=== PATIENT | male | born 1945 | race Hispanic/Latino ===

== ENCOUNTER 2017-07-31 20:07 | Inpatient (IN) | payer MEDICARE ==
[~2017-07-31] VITALS: Ht 162.6 cm; Wt 71.4 kg
[~2017-07-31 20:07] MED LIST: ASPI-1181 PO; IPRA21SP IH; IPRA4AER IH; LISI-617 PO; METO25TA6 PO; SIMV40TA59 PO; TAMS-1 PO; UMECLIDINIUM IH
[2017-07-31 20:39] LABS: BASOPHILS % (AUTO) 0.1 % (0.0-5.0); HEMATOCRIT 43.3 % (42-54); LYMPHOCYTES % (AUTO) 6.2 % (21.0-51.0); MEAN CORPUSCULAR HEMOGLOBIN 28.7 pg (27.0-33.0); MEAN CORPUSCULAR HGB CONC 33.3 g/dL (32.0-36.0); MEAN CORPUSCULAR VOLUME 86.2 fL (79-99); MONOCYTES % (AUTO) 10.4 % (3.0-13.0); NEUTROPHILS % (AUTO) 83.3 % (40.0-77.0); PLATELET COUNT (AUTO) 234 K/uL (130-400); RED BLOOD CELL COUNT(AUTO) 5.02 MIL/uL (4.50-6.20); RED CELL DISTRIBUTION WIDTH 15.1 % (11.0-15.5); WHITE BLOOD COUNT (AUTO) 8.8 K/uL (4.8-10.8)
[2017-07-31 20:48] LABS: CREATININE 1.1 mg/dL (0.5-1.5); POTASSIUM 4.5 mmol/L (3.5-5.1)
[2017-07-31 20:53] LABS: ALBUMIN 3.2 g/dL (3.5-5.0); BILIRUBIN,TOTAL 0.3 mg/dL (0.2-1.0); TOTAL PROTEIN, SERUM 7.5 g/dL (6.0-8.3)
[2017-07-31 22:12] LABS: CREATINE KINASE MB 1.6 ng/mL (0.5-3.6)
[2017-07-31] MEDS ORDERED: BENZONATATE 100 MG CAPSULE PO ONE (23:56)
[2017-07-31] MEDS ORDERED: METHYLPREDNISOLONE SOD SUCC 125MG/2ML VIAL ONE (23:57)
[2017-07-31] MEDS ORDERED: LEVOFLOXACIN 500 MG/D5W 100 ML 100 ML ONE (23:57)
[2017-08-01] MEDS ORDERED: IPRATROPIUM/ALBUTEROL SULFATE 3 ML SOLUTION IH ONE (00:17)
[2017-08-01] MEDS ORDERED: ONDANSETRON HCL 4 MG/2 ML VIAL IV PRN (01:45)
[2017-08-01] MEDS ORDERED: HYDRALAZINE HCL 20 MG/ML VIAL IV PRN (01:45)
[2017-08-01] MEDS ORDERED: GUAIFENESIN-DM 200/20 MG 10 ML PO PRN (01:45)
[2017-08-01] MEDS ORDERED: LIDOCAINE HCL-MPF 1% 2ML VIAL IVP PRN (01:45)
[2017-08-01] MEDS ORDERED: POTASSIUM CHLORIDE 20 MEQ ERTAB PO PRN (01:45)
[2017-08-01] MEDS ORDERED: POTASSIUM CHLORIDE 20MEQ/100ML 100 ML IV PRN (01:45)
[2017-08-01] MEDS: LEVOFLOXACIN 500 MG/D5W 100 ML 100 ML IV SCH ×2 (01:45→23:46)
[2017-08-01] MEDS: METHYLPREDNISOLONE SOD SUCC 125MG/2ML VIAL IV SCH ×2 (01:45→19:29)
[2017-08-01] MEDS ORDERED: POTASSIUM CHLORIDE 10% ELIXIR 20 MEQ/15 ML UDCUP PO PRN (01:45)
[2017-08-01] MEDS ORDERED: ACETAMINOPHEN 325 MG TAB PO PRN ×2 (01:45)
[2017-08-01] MEDS ORDERED: SODIUM CHLORIDE FOR INHALATION 3 ML VIAL.NEB. IH ONE (03:32)
[2017-08-01] MEDS ORDERED: SODIUM CHLORIDE 3% FOR INHALATION 4 ML/AMP VIAL.NEB IH ONE (03:37)
[2017-08-01] MEDS: IPRATROPIUM/ALBUTEROL SULFATE 3 ML SOLUTION IH SCH ×3 (07:06→18:00)
[2017-08-01] MEDS ORDERED: METHYLPREDNISOLONE SOD SUCC 40MG/ML 1ML ONE (07:34)
[2017-08-01 07:58] VITALS: BP 151/72
[2017-08-01] MEDS: METHYLPREDNISOLONE SOD SUCC 125MG/2ML VIAL IVP SCH ×3 (08:00→23:46)
[2017-08-01] MEDS ORDERED: CEFT1VIA IM (08:11)
[2017-08-01] MEDS ORDERED: BUDE10.2 IH (08:11)
[2017-08-01] MEDS ORDERED: AZIT500T PO (08:11)
[2017-08-01] MEDS: OSELTAMIVIR PHOSPHATE 75 MG CAP PO SCH ×2 (08:36→20:28)
[2017-08-01] MEDS: BENZONATATE 100 MG CAPSULE PO SCH ×3 (08:36→20:28)
[2017-08-01] MEDS: FAMOTIDINE 20MG TAB 20 MG TAB PO SCH ×2 (08:37→20:28)
[2017-08-01 11:02] VITALS: BP 151/85
[2017-08-01] MEDS ORDERED: ACETYLCYSTEINE 20% 200MG/ML 4ML VIAL ONE (11:02)
[2017-08-01] MEDS: ACETYLCYSTEINE 20% 200MG/ML 4ML VIAL IH SCH ×2 (11:05→18:54)
[2017-08-01] MEDS: ALBUTEROL SULFATE 0.083% 2.5 MG/3 ML INH IH SCH ×3 (11:05→23:53)
[2017-08-01] MEDS ORDERED: ALBUTEROL SULFATE 0.083% 2.5 MG/3 ML INH IH SCH (12:00)
[2017-08-01 15:23] VITALS: BP 122/60
[2017-08-01] MEDS: BUDESONIDE 0.5 MG/2 ML INH IH SCH (18:54)
[2017-08-01 20:00] VITALS: BP 114/51
[2017-08-01] MEDS: ASPIRIN 81 MG EC TAB PO SCH (20:28)
[2017-08-01] MEDS: METOPROLOL TARTRATE 25 MG TAB PO SCH (20:28)
[2017-08-01] MEDS: ATORVASTATIN CALCIUM 20 MG TABLET PO SCH (20:28)
[2017-08-02] VITALS: BP 95/54
[2017-08-02 04:00] VITALS: BP 96/52
[2017-08-02] MEDS: ACETYLCYSTEINE 20% 200MG/ML 4ML VIAL IH SCH ×3 (04:53→22:58)
[2017-08-02] MEDS: BUDESONIDE 0.5 MG/2 ML INH IH SCH ×2 (04:53→17:25)
[2017-08-02] MEDS: ALBUTEROL SULFATE 0.083% 2.5 MG/3 ML INH IH SCH ×3 (04:53→17:24)
[2017-08-02 05:19] LABS: HEMATOCRIT 42.8 % (42-54); MEAN CORPUSCULAR HEMOGLOBIN 28.3 pg (27.0-33.0); MEAN CORPUSCULAR HGB CONC 33.2 g/dL (32.0-36.0); MEAN CORPUSCULAR VOLUME 85.2 fL (79-99); PLATELET COUNT (AUTO) 248 K/uL (130-400); RED BLOOD CELL COUNT(AUTO) 5.02 MIL/uL (4.50-6.20); RED CELL DISTRIBUTION WIDTH 14.8 % (11.0-15.5); WHITE BLOOD COUNT (AUTO) 8.7 K/uL (4.8-10.8)
[2017-08-02 05:26] LABS: CREATININE 1.1 mg/dL (0.5-1.5); POTASSIUM 4.1 mmol/L (3.5-5.1)
[2017-08-02] MEDS: IPRATROPIUM/ALBUTEROL SULFATE 3 ML SOLUTION IH SCH ×4 (06:00→22:57)
[2017-08-02 07:38] VITALS: BP 129/58
[2017-08-02] MEDS: METHYLPREDNISOLONE SOD SUCC 125MG/2ML VIAL IVP SCH ×3 (07:52→23:36)
[2017-08-02] MEDS: FAMOTIDINE 20MG TAB 20 MG TAB PO SCH ×2 (07:57→20:21)
[2017-08-02] MEDS: METOPROLOL TARTRATE 25 MG TAB PO SCH ×2 (07:57→20:21)
[2017-08-02] MEDS: OSELTAMIVIR PHOSPHATE 75 MG CAP PO SCH ×2 (07:57→20:21)
[2017-08-02] MEDS: ENOXAPARIN SODIUM 30 MG/0.3 ML SQ SCH (07:59)
[2017-08-02] MEDS: BENZONATATE 100 MG CAPSULE PO SCH ×3 (08:01→20:20)
[2017-08-02] MEDS: LISINOPRIL 5 MG TABLET PO SCH (08:14)
[2017-08-02 11:17] VITALS: BP 146/65
[2017-08-02 15:30] VITALS: BP 111/54
[2017-08-02 20:12] VITALS: BP 120/76
[2017-08-02] MEDS: ASPIRIN 81 MG EC TAB PO SCH (20:21)
[2017-08-02] MEDS: ATORVASTATIN CALCIUM 20 MG TABLET PO SCH (20:21)
[2017-08-03 00:17] VITALS: BP 102/57
[2017-08-03] MEDS: METHYLPREDNISOLONE SOD SUCC 125MG/2ML VIAL IV SCH (00:30)
[2017-08-03] MEDS: LEVOFLOXACIN 500 MG/D5W 100 ML 100 ML IV SCH (02:11)
[2017-08-03 03:45] VITALS: BP 121/59
[2017-08-03 04:46] LABS: MEAN CORPUSCULAR HGB CONC 33.1 g/dL (32.0-36.0); MEAN CORPUSCULAR VOLUME 84.7 fL (79-99); NUCLEATED RED BLOOD CELLS 0.1 % (0.0-0.19); PLATELET COUNT (AUTO) 260 K/uL (130-400); RED BLOOD CELL COUNT(AUTO) 4.96 MIL/uL (4.50-6.20); RED CELL DISTRIBUTION WIDTH 15.1 % (11.0-15.5); WHITE BLOOD COUNT (AUTO) 9.2 K/uL (4.8-10.8)
[2017-08-03 04:49] LABS: POTASSIUM 4.3 mmol/L (3.5-5.1)
[2017-08-03] MEDS: ACETYLCYSTEINE 20% 200MG/ML 4ML VIAL IH SCH ×2 (06:49→23:38)
[2017-08-03] MEDS: BUDESONIDE 0.5 MG/2 ML INH IH SCH ×2 (06:50→16:33)
[2017-08-03] MEDS: IPRATROPIUM/ALBUTEROL SULFATE 3 ML SOLUTION IH SCH ×5 (06:51→23:38)
[2017-08-03 07:43] VITALS: BP 108/66
[2017-08-03] MEDS: METOPROLOL TARTRATE 25 MG TAB PO SCH ×2 (09:00→21:47)
[2017-08-03] MEDS: LISINOPRIL 5 MG TABLET PO SCH (09:15)
[2017-08-03] MEDS: OSELTAMIVIR PHOSPHATE 75 MG CAP PO SCH ×2 (09:15→21:47)
[2017-08-03] MEDS: FAMOTIDINE 20MG TAB 20 MG TAB PO SCH ×2 (09:15→21:47)
[2017-08-03] MEDS: BENZONATATE 100 MG CAPSULE PO SCH ×3 (09:15→21:47)
[2017-08-03] MEDS: ENOXAPARIN SODIUM 30 MG/0.3 ML SQ SCH (09:16)
[2017-08-03] MEDS: METHYLPREDNISOLONE SOD SUCC 125MG/2ML VIAL IVP SCH ×2 (09:16→21:48)
[2017-08-03] MEDS ORDERED: VANCOMYCIN 1GM+NS 250ML 250 ML IV SCH (10:15)
[2017-08-03] MEDS ORDERED: VANCOMYCIN PROTOCOL PER PHARMACY IV PRN ×2 (10:15→10:30)
[2017-08-03 11:23] VITALS: BP 130/58
[2017-08-03 16:00] VITALS: BP 143/69
[2017-08-03 20:00] VITALS: BP 124/58
[2017-08-03] MEDS: ATORVASTATIN CALCIUM 20 MG TABLET PO SCH (21:47)
[2017-08-03] MEDS: ASPIRIN 81 MG EC TAB PO SCH (21:47)
[2017-08-03] MEDS: VANCOMYCIN 1GM+NS 250ML 250 ML IV SCH (21:48)
[2017-08-04] VITALS: BP 127/65
[2017-08-04] MEDS: METHYLPREDNISOLONE SOD SUCC 125MG/2ML VIAL IV SCH (01:43)
[2017-08-04] MEDS: LEVOFLOXACIN 500 MG/D5W 100 ML 100 ML IV SCH (01:48)
[2017-08-04 03:55] VITALS: BP 100/51
[2017-08-04] MEDS: BUDESONIDE 0.5 MG/2 ML INH IH SCH ×2 (05:49→19:15)
[2017-08-04] MEDS: IPRATROPIUM/ALBUTEROL SULFATE 3 ML SOLUTION IH SCH ×4 (05:49→23:51)
[2017-08-04] MEDS: ACETYLCYSTEINE 20% 200MG/ML 4ML VIAL IH SCH ×5 (05:51→23:48)
[2017-08-04 08:19] VITALS: BP 115/59
[2017-08-04] MEDS: VANCOMYCIN 1GM+NS 250ML 250 ML IV SCH ×2 (08:31→22:20)
[2017-08-04] MEDS: BENZONATATE 100 MG CAPSULE PO SCH ×3 (08:31→22:20)
[2017-08-04] MEDS: METHYLPREDNISOLONE SOD SUCC 125MG/2ML VIAL IVP SCH (08:31)
[2017-08-04] MEDS: OSELTAMIVIR PHOSPHATE 75 MG CAP PO SCH ×2 (08:31→22:14)
[2017-08-04] MEDS: FAMOTIDINE 20MG TAB 20 MG TAB PO SCH ×2 (08:31→22:14)
[2017-08-04] MEDS: ENOXAPARIN SODIUM 30 MG/0.3 ML SQ SCH (08:32)
[2017-08-04] MEDS: METOPROLOL TARTRATE 25 MG TAB PO SCH ×2 (08:32→22:14)
[2017-08-04] MEDS: LISINOPRIL 5 MG TABLET PO SCH (08:33)
[2017-08-04 11:54] VITALS: BP 134/54
[2017-08-04 16:14] VITALS: BP 163/77
[2017-08-04] MEDS: ALBUTEROL SULFATE 0.083% 2.5 MG/3 ML INH IH SCH ×2 (18:00→23:48)
[2017-08-04] MEDS: SODIUM CHLORIDE 3% FOR INHALATION 4 ML/AMP VIAL.NEB IH SCH ×2 (19:15→23:48)
[2017-08-04 20:38] VITALS: BP 114/60
[2017-08-04] MEDS ORDERED: METHYLPREDNISOLONE SOD SUCC 125MG/2ML VIAL IVP SCH (21:00)
[2017-08-04] MEDS: ATORVASTATIN CALCIUM 20 MG TABLET PO SCH (22:14)
[2017-08-04] MEDS: ASPIRIN 81 MG EC TAB PO SCH (22:14)
[2017-08-05 00:46] VITALS: BP 145/68
[2017-08-05] MEDS: METHYLPREDNISOLONE SOD SUCC 125MG/2ML VIAL IV SCH (03:24)
[2017-08-05] MEDS: LEVOFLOXACIN 500 MG/D5W 100 ML 100 ML IV SCH (03:25)
[2017-08-05 04:14] VITALS: BP 104/59
[2017-08-05 06:08] LABS: HEMATOCRIT 40.9 % (42-54); MEAN CORPUSCULAR HEMOGLOBIN 28.6 pg (27.0-33.0); MEAN CORPUSCULAR HGB CONC 33.8 g/dL (32.0-36.0); MEAN CORPUSCULAR VOLUME 84.6 fL (79-99); PLATELET COUNT (AUTO) 266 K/uL (130-400); RED BLOOD CELL COUNT(AUTO) 4.83 MIL/uL (4.50-6.20); RED CELL DISTRIBUTION WIDTH 14.5 % (11.0-15.5); WHITE BLOOD COUNT (AUTO) 8.3 K/uL (4.8-10.8)
[2017-08-05 06:17] LABS: CREATININE 0.9 mg/dL (0.5-1.5); POTASSIUM 4.6 mmol/L (3.5-5.1)
[2017-08-05] MEDS: ALBUTEROL SULFATE 0.083% 2.5 MG/3 ML INH IH SCH ×4 (06:38→23:40)
[2017-08-05] MEDS: ACETYLCYSTEINE 20% 200MG/ML 4ML VIAL IH SCH ×4 (06:39→19:34)
[2017-08-05] MEDS: SODIUM CHLORIDE 3% FOR INHALATION 4 ML/AMP VIAL.NEB IH SCH ×2 (06:39→23:40)
[2017-08-05 07:54] VITALS: BP 138/72
[2017-08-05] MEDS: BENZONATATE 100 MG CAPSULE PO SCH ×3 (09:54→21:16)
[2017-08-05] MEDS: LISINOPRIL 5 MG TABLET PO SCH (09:55)
[2017-08-05] MEDS: OSELTAMIVIR PHOSPHATE 75 MG CAP PO SCH ×2 (09:55→21:16)
[2017-08-05] MEDS: ENOXAPARIN SODIUM 30 MG/0.3 ML SQ SCH (09:55)
[2017-08-05] MEDS: FAMOTIDINE 20MG TAB 20 MG TAB PO SCH ×2 (09:55→21:16)
[2017-08-05] MEDS: METOPROLOL TARTRATE 25 MG TAB PO SCH ×2 (09:55→21:16)
[2017-08-05] MEDS: VANCOMYCIN 1GM+NS 250ML 250 ML IV SCH ×2 (09:56→21:17)
[2017-08-05 12:00] VITALS: BP 137/64
[2017-08-05] MEDS ORDERED: ACETYLCYSTEINE 20% 200MG/ML 4ML VIAL IH SCH (14:00)
[2017-08-05] MEDS: PREDNISONE 5 MG TABLET PO SCH (14:12)
[2017-08-05 16:00] VITALS: BP 129/60
[2017-08-05] MEDS: IPRATROPIUM/ALBUTEROL SULFATE 3 ML SOLUTION IH SCH (18:00)
[2017-08-05 20:00] VITALS: BP 134/65
[2017-08-05] MEDS: BUDESONIDE 0.5 MG/2 ML INH IH SCH (20:34)
[2017-08-05] MEDS: ATORVASTATIN CALCIUM 20 MG TABLET PO SCH (21:16)
[2017-08-05] MEDS: ASPIRIN 81 MG EC TAB PO SCH (21:17)
[2017-08-06] VITALS: BP 132/62
[2017-08-06] MEDS: LEVOFLOXACIN 500 MG/D5W 100 ML 100 ML IV SCH (02:37)
[2017-08-06] MEDS: METHYLPREDNISOLONE SOD SUCC 125MG/2ML VIAL IV SCH (02:37)
[2017-08-06 04:00] VITALS: BP 116/63
[2017-08-06] MEDS: ACETYLCYSTEINE 20% 200MG/ML 4ML VIAL IH SCH ×3 (05:59→19:12)
[2017-08-06] MEDS: IPRATROPIUM/ALBUTEROL SULFATE 3 ML SOLUTION IH SCH ×2 (06:00)
[2017-08-06] MEDS: ALBUTEROL SULFATE 0.083% 2.5 MG/3 ML INH IH SCH ×4 (06:54→23:47)
[2017-08-06] MEDS: SODIUM CHLORIDE 3% FOR INHALATION 4 ML/AMP VIAL.NEB IH SCH (06:55)
[2017-08-06 08:06] VITALS: BP 134/74
[2017-08-06] MEDS: METOPROLOL TARTRATE 25 MG TAB PO SCH ×2 (09:00→20:32)
[2017-08-06] MEDS: BENZONATATE 100 MG CAPSULE PO SCH ×3 (09:01→20:32)
[2017-08-06] MEDS: VANCOMYCIN 1GM+NS 250ML 250 ML IV SCH ×2 (09:02→20:33)
[2017-08-06] MEDS: PREDNISONE 5 MG TABLET PO SCH (09:02)
[2017-08-06] MEDS: FAMOTIDINE 20MG TAB 20 MG TAB PO SCH ×2 (09:02→20:32)
[2017-08-06] MEDS: LISINOPRIL 5 MG TABLET PO SCH (09:03)
[2017-08-06] MEDS: ENOXAPARIN SODIUM 30 MG/0.3 ML SQ SCH (09:04)
[2017-08-06] MEDS ORDERED: MAGNESIUM HYDROXIDE 30 ML/UDCUP PO SCH (09:45)
[2017-08-06 11:19] VITALS: BP 113/62
[2017-08-06 16:48] VITALS: BP 115/53
[2017-08-06] MEDS: BUDESONIDE 0.5 MG/2 ML INH IH SCH (19:40)
[2017-08-06 19:53] VITALS: BP 130/77
[2017-08-06] MEDS: ASPIRIN 81 MG EC TAB PO SCH (20:32)
[2017-08-06] MEDS: ATORVASTATIN CALCIUM 20 MG TABLET PO SCH (20:32)
[2017-08-07] VITALS: BP 123/64
[2017-08-07] MEDS: LEVOFLOXACIN 500 MG/D5W 100 ML 100 ML IV SCH (03:33)
[2017-08-07] MEDS: METHYLPREDNISOLONE SOD SUCC 125MG/2ML VIAL IV SCH (03:33)
[2017-08-07 04:00] VITALS: BP 140/71
[2017-08-07] MEDS: IPRATROPIUM/ALBUTEROL SULFATE 3 ML SOLUTION IH SCH ×2 (06:00→11:16)
[2017-08-07] MEDS: ACETYLCYSTEINE 20% 200MG/ML 4ML VIAL IH SCH ×2 (06:53→14:00)
[2017-08-07] MEDS: ALBUTEROL SULFATE 0.083% 2.5 MG/3 ML INH IH SCH ×2 (06:53→11:03)
[2017-08-07] MEDS: BUDESONIDE 0.5 MG/2 ML INH IH SCH (06:54)
[2017-08-07] MEDS: SODIUM CHLORIDE 3% FOR INHALATION 4 ML/AMP VIAL.NEB IH SCH ×2 (06:54→11:03)
[2017-08-07 07:45] VITALS: BP 111/69
[2017-08-07 08:20] VITALS: BP 142/89
[2017-08-07] MEDS: ENOXAPARIN SODIUM 30 MG/0.3 ML SQ SCH (08:42)
[2017-08-07] MEDS: LISINOPRIL 5 MG TABLET PO SCH (08:43)
[2017-08-07] MEDS: FAMOTIDINE 20MG TAB 20 MG TAB PO SCH (08:43)
[2017-08-07] MEDS: METOPROLOL TARTRATE 25 MG TAB PO SCH (08:43)
[2017-08-07] MEDS: PREDNISONE 5 MG TABLET PO SCH (08:43)
[2017-08-07] MEDS: BENZONATATE 100 MG CAPSULE PO SCH ×2 (08:43→15:03)
[2017-08-07] MEDS ORDERED: VANCOMYCIN 1GM+NS 250ML 250 ML IV SCH (11:45)
[2017-08-07 12:00] VITALS: BP 117/56
== END 2017-08-07 17:04 | disposition home or self-care (01) | DRG 195 ==
LOC: EDH 20:07 → EDHIP 23:42 → OBSVTOIN 23:42 → 4BH 08-01 07:29
PROVIDERS: ADMIT Internal Medicine; ATTEND Internal Medicine
DX: J18.9 Pneumonia, unspecified organism (principal); J84.10 Pulmonary fibrosis, unspecified; K76.89 Other specified diseases of liver; E78.5 Hyperlipidemia, unspecified; I10 Essential (primary) hypertension; Z86.11 Personal history of tuberculosis; Z80.1 Family history of malignant neoplasm of trachea, bronchus and lung
CPT/HCPCS: 36415; 71045; 71250; 80048; 80053; 80202; 82550; 82553; 83880; 84484; 85025; 85027; 86738; 87071; 87205; 87449; 93005; 94640; 94664; 94667; 94668; J1650; J1956; J2920; J2930; J3370; J7512; J7608

== ENCOUNTER → 2018-03-04 | Outpatient (CLI) | payer MEDICARE ==
[~2018-03-04] VITALS: Ht 162.6 cm; Wt 72.1 kg
[~2018-03-04] MED LIST changes: +BUDE10.2 IH; -IPRA21SP IH; +REGADENOSON 0.4 MG/5 ML PF SYG IVP SCH; -UMECLIDINIUM IH
== END | disposition home or self-care (01) ==
LOC: SHCH 08:12
PROVIDERS: ATTEND Internal Medicine Cardiovascular Disease
DX: I20.9 Angina pectoris, unspecified (principal); R06.00 Dyspnea, unspecified
CPT/HCPCS: 78452; 93017; 96374; A9500 ×2; J2785

== ENCOUNTER → 2019-02-10 | Outpatient (CLI) | payer MEDICARE ==
[~2019-02-10] MED LIST changes: -REGADENOSON 0.4 MG/5 ML PF SYG IVP SCH
== END | disposition home or self-care (01) ==
LOC: RAH 13:57
PROVIDERS: ATTEND Internal Medicine
DX: S01.91XA Laceration without foreign body of unspecified part of head, initial encounter (principal); G31.89 Other specified degenerative diseases of nervous system; W06.XXXA Fall from bed, initial encounter; Y93.89 Activity, other specified; Y92.89 Other specified places as the place of occurrence of the external cause; Y99.8 Other external cause status
CPT/HCPCS: 70450

== ENCOUNTER 2019-07-19 06:28 | Day surgery (SDC) | payer MEDICARE ==
[2019-07-15 13:49] LABS: BASOPHILS % (AUTO) 0.5 % (0.0-5.0); EOSINOPHILS % (AUTO) 4.9 % (0.0-8.0); HEMATOCRIT 41.3 % (42-54); LYMPHOCYTES % (AUTO) 22.4 % (21.0-51.0); MEAN CORPUSCULAR HGB CONC 30.8 g/dL (32.0-36.0); MEAN CORPUSCULAR VOLUME 84.5 fL (79-99); MONOCYTES % (AUTO) 10.6 % (3.0-13.0); NEUTROPHILS % (AUTO) 61.1 % (40.0-77.0); PLATELET COUNT (AUTO) 244 K/uL (130-400); RED BLOOD CELL COUNT(AUTO) 4.89 MIL/uL (4.50-6.20); WHITE BLOOD COUNT (AUTO) 7.3 K/uL (4.8-10.8)
[2019-07-15 13:59] LABS: CREATININE 1.1 mg/dL (0.5-1.5); POTASSIUM 4.3 mmol/L (3.5-5.1)
[2019-07-15 14:01] LABS: INR 1.04 (0.85-1.15); PARTIAL THROMBOPLASTIN TIME 29.4 SEC (26.3-35.5); PROTHROMBIN TIME 10.9 SEC (9.6-11.6)
[2019-07-15 14:02] VITALS: BP 148/58
[2019-07-15 14:02] LABS: APPEARANCE,URINE Clear (CLEAR); BILIRUBIN,URINE Negative (NEGATIVE); COLOR,URINE Yellow (YELLOW); GLUCOSE, URINE (UA) Negative (NEGATIVE); KETONES,URINE Trace mg/dL (NEGATIVE); LEUKOCYTE ESTERASE ,URINE Negative (NEGATIVE); NITRATE,URINE Negative (NEGATIVE); OCCULT BLOOD,URINE Negative (NEGATIVE); PROTEIN,URINE Negative (NEGATIVE); UROBILINOGEN,URINE 0.2 mg/dL (0.2-1.0)
[2019-07-15 14:15] LABS: BACTERIA,URINE Rare /HPF (None Seen); MUCUS,URINE Few LPF (None Seen); RBC,URINE 0-1 /HPF (0-1); SQUAMOUS EPITHELIAL CELL,UR Rare /HPF (0-2); WBC,URINE 0-1 /HPF (0-1)
[2019-07-19] VITALS (12 sets, daily range): BP systolic 100–132; BP diastolic 52–70
[~2019-07-19] VITALS: Ht 165.1 cm; Wt 76.8 kg
[~2019-07-19 06:28] MED LIST changes: +AMLO5TAB9 PO; -BUDE10.2 IH; +CYCL30DR OU; +ISOS30TA6 PO; -LISI-617 PO; -METO25TA6 PO; +NITR0.4T50 SL; +SIMV-43 PO; -SIMV40TA59 PO; +SODIUM CHLORIDE 0.9% 500ML 500 ML IV SCH; +TELM40TA8 PO
[2019-07-19] MEDS ORDERED: NITROGLYCERIN 2 MG/VIAL VIAL IV ONE (07:28)
[2019-07-19] MEDS ORDERED: BIVALIRUDIN 250 MG/VIAL IV ONE (07:28)
[2019-07-19] MEDS ORDERED: IOHEXOL-350 50ML VIAL IV ONE ×2 (07:29→09:05)
[2019-07-19] MEDS ORDERED: LIDOCAINE HCL 2% 20ML ONE (07:29)
[2019-07-19] MEDS ORDERED: IOHEXOL 350 MG/ML 100ML INFUS..BTL IV ONE (07:29)
[2019-07-19] MEDS ORDERED: MIDAZOLAM HCL 1 MG/ML 2ML VIAL ONE (07:29)
[2019-07-19] MEDS ORDERED: SODIUM CHLORIDE 0.9% 1000ML 1,000 ML IV ONE (08:09)
[2019-07-19] MEDS ORDERED: ADENOSINE 90MG/30ML VIAL IV ONE (09:12)
[2019-07-19] MEDS ORDERED: HEPARIN SODIUM 1000UNIT/ML 10ML VIAL ONE (09:14)
[2019-07-19] MEDS ORDERED: IOHEXOL-350 75 ML VIAL IV ONE (09:22)
[2019-07-19] MEDS ORDERED: SODIUM CHLORIDE 0.9% 1000ML 1,000 ML IV SCH (09:50)
[2019-07-19 11:17] LABS: CHOLESTEROL 120 mg/dL (<200); HDL CHOLESTEROL 78 mg/dL (29-71); LDL DIRECT 73 mg/dL (0-99); TRIGLYCERIDES 34 mg/dL (30-200)
--- NOTE | 2019-07-19 12:40 | NUR ---
Pt complaining of discomfort on left upper back. Ronda Lorenzo NP notified and orders for Tylenol received.
[2019-07-19] MEDS ORDERED: ACETAMINOPHEN 325 MG TAB ONE (12:41)
--- NOTE | 2019-07-19 13:55 | NUR ---
Pt discharged home, tolerating solids/fluids well, ambulating well, voiding well. Denies any severe pain, nausea or dizziness. Dressing to right groin remains clean, dry and intact, site soft and non-tender. Routine and emergency care of right cath site provided. Pt and spouse verbalized understanding. Pt and spouse report no further questions at this time.
== END 2019-07-19 13:55 | disposition home or self-care (01) ==
LOC: DAH 06:28
PROVIDERS: ATTEND Internal Medicine Cardiovascular Disease
DX: I25.110 Atherosclerotic heart disease of native coronary artery with unstable angina pectoris (principal); I10 Essential (primary) hypertension; E78.5 Hyperlipidemia, unspecified; Z79.82 Long term (current) use of aspirin; Z79.899 Other long term (current) drug therapy; Z98.890 Other specified postprocedural states
CPT/HCPCS: 36415 ×2; 71045; 75710; 80048; 80061; 81001; 85025; 85610; 85730; 93005; 93458; 93571; A4215; A4216; A4221; A4222; A4223 ×3; A4606; A4663; C1760; C1769; C1887; C1894; J0153; J1644 ×2; J3490 ×2; J7030; Q9965; Q9967 ×4; J0583; J2250

== ENCOUNTER 2019-09-14 17:03 | Inpatient (IN) | payer MEDICARE ==
[~2019-09-14] VITALS: Ht 160 cm; Wt 48.5 kg
[2019-09-14] MEDS: ZOSYN 3.375GM+NS 50ML 50 ML IV SCH ×2 (13:00→21:00)
[2019-09-14] MEDS: PHARMACY COMMUNICATION MISC SCH ×3 (13:33→23:30)
[~2019-09-14 17:03] MED LIST changes: +AMLO-257 PO; -AMLO5TAB9 PO; -ASPI-1181 PO; +ASPI-1443 PO
[2019-09-14 17:49] VITALS: BP 129/62
[2019-09-14 18:33] LABS: BASOPHILS % (AUTO) 0.6 % (0.0-5.0); EOSINOPHILS % (AUTO) 1.1 % (0.0-8.0); HEMATOCRIT 39.3 % (42-54); LYMPHOCYTES % (AUTO) 14.7 % (21.0-51.0); MEAN CORPUSCULAR HEMOGLOBIN 26.3 pg (27.0-33.0); MEAN CORPUSCULAR HGB CONC 32.1 g/dL (32.0-36.0); MONOCYTES % (AUTO) 7.3 % (3.0-13.0); NEUTROPHILS % (AUTO) 75.4 % (40.0-77.0); PLATELET COUNT (AUTO) 279 K/uL (130-400); RED BLOOD CELL COUNT(AUTO) 4.79 MIL/uL (4.50-6.20); RED CELL DISTRIBUTION WIDTH 16.4 % (11.0-15.5)
--- NOTE | 2019-09-14 18:45 | NUR ---
At about 1845 as per nurse patient is going to be placed on PUI and transferred to second floor pod D, notified nurse of recommendation for PUI as per CDC guidelines and hospital is [facility], nurse will notify the doctor. Addendum: 09/14/19 at 2004 by GARCIA COLLAZO RT Amended: Links added.
[2019-09-14 19:00] VITALS: BP 136/72
[2019-09-14 19:00] LABS: INR 1.01 (0.85-1.15); PARTIAL THROMBOPLASTIN TIME 29.4 SEC (26.3-35.5); PROTHROMBIN TIME 10.9 SEC (9.6-11.6)
[2019-09-14 19:09] LABS: ALANINE AMINOTRANSFERASE 35 U/L (12-78); ALBUMIN 3.1 g/dL (3.5-5.0); ASPARTATE AMINOTRANSFERASE 19 U/L (10-37); BILIRUBIN,DIRECT < 0.1 mg/dL (0.0-0.3); BILIRUBIN,TOTAL 0.2 mg/dL (0.2-1.0); THYROID STIMULATING HORMONE 0.67 uIU/mL (0.36-3.74)
[2019-09-14] MEDS ORDERED: DOCUSATE SODIUM 100 MG CAP PO PRN (19:30)
[2019-09-14] MEDS ORDERED: ZOLPIDEM TARTRATE 5 MG TAB PO PRN (19:30)
[2019-09-14] MEDS ORDERED: LIDOCAINE HCL-MPF 1% 2ML VIAL IJ PRN (19:30)
[2019-09-14] MEDS ORDERED: ACETAMINOPHEN 325 MG TAB PO PRN (19:30)
[2019-09-14] MEDS ORDERED: POTASSIUM CHLORIDE 20MEQ/100ML 100 ML IV PRN (19:30)
[2019-09-14] MEDS ORDERED: POTASSIUM CHLORIDE 10% ELIXIR 20 MEQ/15 ML UDCUP PO PRN (19:30)
--- NOTE | 2019-09-14 20:20 | NUR ---
TO BE TRANSFERRED TO 217 Report given to nurse. Pt to be placed on PUI. Per report COVID test done at clinic. Also, informed still to follow up with housesmith regarding ordered IR consult for pulmonary angiogram and possible embolization.
[2019-09-14] MEDS ORDERED: VANCOMYCIN PROTOCOL PER PHARMACY IV SCH (21:15)
[2019-09-14] MEDS ORDERED: LEVOFLOXACIN 750 MG/D5W 150 ML 150 ML IV SCH ×2 (21:15→21:30)
[2019-09-14 21:37] LABS: POTASSIUM 3.8 mmol/L (3.5-5.1)
[2019-09-14 21:38] LABS: CREATININE 0.9 mg/dL (0.5-1.5)
--- NOTE | 2019-09-14 21:49 | NUR ---
INTELLECTUAL PROPERTY MANAGER unit manager [employer] for [facility] called to verify the reason antibiotics are to be given, per pharmacy communication. SRINIVASAN Miller stated to hold medications and re-address in the A.M.
--- NOTE | 2019-09-14 22:15 | NUR ---
food and nutrition supervisor was called to follow up regarding IR consult for pt with a reply that they are aware about it. Needs CT scan to be done first. Nurse Kris ( rm 217) informed.
--- NOTE | 2019-09-14 22:45 | NUR ---
Pt sent out for CT scan via wheelchair and to proceed to rm 217 as instructed. Pt agreed and verbalized understanding. Pt fully awake and responsive. No apparent distress or discomfort noted. Personal belongings brought by the proposal manager writer to rm. 217.
--- NOTE | 2019-09-14 22:55 | NUR ---
Received patient at this time into 207 who came from room [address] scan just prior to arrival to this unit. Patient with mila vital signs on room air and in no apparent distress.
[2019-09-14] MEDS ORDERED: VANCOMYCIN 1.5 GM in SODIUM CHLORIDE 0.9% 250 ML IV ONE (23:00)
[2019-09-14] MEDS ORDERED: SODIUM CHLORIDE 0.9% 250 ML IV ONE (23:36)
[2019-09-14 23:41] VITALS: BP 115/55
[2019-09-14 23:56] VITALS: BP 108/59
[2019-09-15] VITALS (25 sets, daily range): BP systolic 94–146; BP diastolic 42–79
[2019-09-15] MEDS ORDERED: ZOSYN 3.375GM+NS 50ML 50 ML IV SCH (01:00)
[2019-09-15] MEDS: PHARMACY COMMUNICATION MISC SCH (01:30)
[2019-09-15] MEDS ORDERED: ALBUTEROL SULFATE/IPRATROPIUM 103/18 MCG/PUFF 14.7 GM INHR IH PRN (01:30)
[2019-09-15] MEDS ORDERED: ALBUTEROL SULFATE/IPRATROPIUM 103/18 MCG/PUFF 14.7 GM INHR IH SCH (06:00)
[2019-09-15] MEDS: ZOSYN 3.375GM+NS 50ML 50 ML IV SCH ×3 (08:18→21:41)
[2019-09-15] MEDS: FAMOTIDINE 20MG TAB 20 MG TAB PO SCH (08:18)
[2019-09-15] MEDS ORDERED: IPRATROPIUM/ALBUTEROL SULFATE 3 ML SOLUTION IH SCH ×2 (12:00)
--- NOTE | 2019-09-15 14:20 | NUR ---
BARBARA PLAN NO H AND P OR NOTES. MEDHO NO CLEAR NOTES. PATIENT IN [facility] ICU AREA UNABLE TO SEE CHART. JITENDRA WILL CONTINUE TO FOLLOW. Addendum: 09/15/19 at 1429 by BERTRAND LENTZ RN CM Amended: Links added.
--- NOTE | 2019-09-15 15:41 | NUR ---
DCP: HOME Sw spoke to pt's Colleen Mueller [phone]. Per pt is independent of ADLS, and has provider 13.5 hrs a week thru [facility] to assist with home management and meal prep. Pt has cane that he uses prn, no HH services. PCP is Dr Jay and pt uses [facility] for rx. denies dc needs and states pt will return home at dc
[2019-09-15] MEDS: SIMVASTATIN 20 MG TABLET PO SCH (21:41)
[2019-09-15] MEDS: TAMSULOSIN HCL 0.4 MG CAP.ER.24H PO SCH (21:41)
[2019-09-15] MEDS: VANCOMYCIN 1.25 GM in SODIUM CHLORIDE 0.9% 250 ML IV SCH (21:42)
[2019-09-16] VITALS (9 sets, daily range): BP systolic 95–164; BP diastolic 43–83
[2019-09-16] MEDS: ZOSYN 3.375GM+NS 50ML 50 ML IV SCH ×3 (04:00→19:51)
[2019-09-16] MEDS: FAMOTIDINE 20MG TAB 20 MG TAB PO SCH (09:13)
[2019-09-16] MEDS: AMLODIPINE BESYLATE 5 MG TAB PO SCH (09:13)
[2019-09-16] MEDS: ISOSORBIDE MONO 30MG TAB SR PO SCH (09:13)
--- NOTE | 2019-09-16 10:00 | NUR ---
patient is a medical patient tele monitoring not ordered. on 2nd floor icu pod c until medical negative pressure room is available.
--- NOTE | 2019-09-16 12:44 | NUR ---
JOSEPHINE SY HERE TO SEE PATIENT UPDATED. ORDERS RECEIVED.
[2019-09-16] MEDS: VANCOMYCIN 1.25 GM in SODIUM CHLORIDE 0.9% 250 ML IV SCH (19:51)
[2019-09-16] MEDS: TAMSULOSIN HCL 0.4 MG CAP.ER.24H PO SCH (19:51)
[2019-09-16] MEDS: SIMVASTATIN 20 MG TABLET PO SCH (19:51)
[2019-09-16] MEDS: LEVOFLOXACIN 500 MG/D5W 100 ML 100 ML IV SCH (23:20)
[2019-09-17] VITALS: BP 112/64
[2019-09-17 04:00] VITALS: BP 115/59
[2019-09-17] MEDS: ZOSYN 3.375GM+NS 50ML 50 ML IV SCH ×3 (05:05→20:33)
[2019-09-17 06:17] LABS: BASOPHILS % (AUTO) 0.5 % (0.0-5.0); EOSINOPHILS % (AUTO) 2.9 % (0.0-8.0); HEMATOCRIT 38.3 % (42-54); LYMPHOCYTES % (AUTO) 23.4 % (21.0-51.0); MEAN CORPUSCULAR HEMOGLOBIN 26.9 pg (27.0-33.0); MEAN CORPUSCULAR HGB CONC 32.6 g/dL (32.0-36.0); MEAN CORPUSCULAR VOLUME 82.4 fL (79-99); MONOCYTES % (AUTO) 9.1 % (3.0-13.0); NEUTROPHILS % (AUTO) 63.3 % (40.0-77.0); PLATELET COUNT (AUTO) 244 K/uL (130-400); RED BLOOD CELL COUNT(AUTO) 4.65 MIL/uL (4.50-6.20); RED CELL DISTRIBUTION WIDTH 16.4 % (11.0-15.5); WHITE BLOOD COUNT (AUTO) 6.2 K/uL (4.8-10.8)
[2019-09-17 06:46] LABS: CREATININE 0.9 mg/dL (0.5-1.5); POTASSIUM 4.1 mmol/L (3.5-5.1)
[2019-09-17 06:50] LABS: PARTIAL THROMBOPLASTIN TIME 31.1 SEC (26.3-35.5); PROTHROMBIN TIME 10.8 SEC (9.6-11.6)
[2019-09-17 07:30] VITALS: BP 110/54
[2019-09-17 07:55] LABS: EOSINOPHILS % (MANUAL) 2 % (1-6); LYMPHOCYTES % (MANUAL) 23 % (22-44); MAN.DIFF COMMENT-IMPRESSION MANUAL DIFFERENTIAL; MONOCYTES % (MANUAL) 9 % (2-9); SEGMENTED NEUTROPHILS % 66 % (40-70)
[2019-09-17 07:56] LABS: PLATELET MORPHOLOGY COMMENT ADEQUATE
[2019-09-17 08:30] LABS: B-TYPE NATRIURETIC PEPTIDE 35 pg/mL (0-100)
[2019-09-17] MEDS: FAMOTIDINE 20MG TAB 20 MG TAB PO SCH (08:41)
[2019-09-17] MEDS: AMLODIPINE BESYLATE 5 MG TAB PO SCH (08:41)
[2019-09-17] MEDS: ISOSORBIDE MONO 30MG TAB SR PO SCH (08:42)
[2019-09-17] MEDS ORDERED: COMPOUND IV REFRIGERATED 1 EACH IVSOLN MISC PRN (11:30)
[2019-09-17 12:00] VITALS: BP 101/52
[2019-09-17 19:02] VITALS: BP 144/74
[2019-09-17] MEDS: SIMVASTATIN 20 MG TABLET PO SCH (20:32)
[2019-09-17] MEDS: LEVOFLOXACIN 500 MG/D5W 100 ML 100 ML IV SCH (20:32)
[2019-09-17] MEDS: TAMSULOSIN HCL 0.4 MG CAP.ER.24H PO SCH (20:33)
[2019-09-17] MEDS: VANCOMYCIN 1.25 GM in SODIUM CHLORIDE 0.9% 250 ML IV SCH (21:00)
[2019-09-17 23:00] VITALS: BP 100/40
[2019-09-18] VITALS (7 sets, daily range): BP systolic 98–140; BP diastolic 55–71
[2019-09-18 00:53] LABS: APPEARANCE,URINE Clear (CLEAR); BILIRUBIN,URINE Negative (NEGATIVE); COLOR,URINE Yellow (YELLOW); GLUCOSE, URINE (UA) Negative (NEGATIVE); KETONES,URINE Negative (NEGATIVE); LEUKOCYTE ESTERASE ,URINE Negative (NEGATIVE); NITRATE,URINE Negative (NEGATIVE); OCCULT BLOOD,URINE Negative (NEGATIVE); PH,URINE 6.5 (5.0-8.0); PROTEIN,URINE Negative (NEGATIVE); UROBILINOGEN,URINE 0.2 mg/dL (0.2-1.0)
[2019-09-18] MEDS: ZOSYN 3.375GM+NS 50ML 50 ML IV SCH ×3 (04:02→21:48)
[2019-09-18] MEDS: VANCOMYCIN 1.25 GM in SODIUM CHLORIDE 0.9% 250 ML IV SCH ×2 (04:45→17:32)
[2019-09-18 05:35] LABS: BASOPHILS % (AUTO) 0.7 % (0.0-5.0); EOSINOPHILS % (AUTO) 3.5 % (0.0-8.0); HEMATOCRIT 36.1 % (42-54); LYMPHOCYTES % (AUTO) 24.9 % (21.0-51.0); MEAN CORPUSCULAR HEMOGLOBIN 26.7 pg (27.0-33.0); MEAN CORPUSCULAR HGB CONC 32.4 g/dL (32.0-36.0); MEAN CORPUSCULAR VOLUME 82.4 fL (79-99); MONOCYTES % (AUTO) 8.8 % (3.0-13.0); NEUTROPHILS % (AUTO) 61.4 % (40.0-77.0); PLATELET COUNT (AUTO) 227 K/uL (130-400); RED BLOOD CELL COUNT(AUTO) 4.38 MIL/uL (4.50-6.20); RED CELL DISTRIBUTION WIDTH 16.2 % (11.0-15.5); WHITE BLOOD COUNT (AUTO) 5.7 K/uL (4.8-10.8)
[2019-09-18 05:50] LABS: CREATININE 0.9 mg/dL (0.5-1.5); POTASSIUM 3.8 mmol/L (3.5-5.1)
[2019-09-18 06:02] LABS: B-TYPE NATRIURETIC PEPTIDE 58 pg/mL (0-100)
[2019-09-18] MEDS: FAMOTIDINE 20MG TAB 20 MG TAB PO SCH (11:21)
[2019-09-18] MEDS: ISOSORBIDE MONO 30MG TAB SR PO SCH (11:21)
[2019-09-18] MEDS: AMLODIPINE BESYLATE 5 MG TAB PO SCH (11:21)
[2019-09-18] MEDS: SIMVASTATIN 20 MG TABLET PO SCH (21:48)
[2019-09-18] MEDS: LEVOFLOXACIN 500 MG/D5W 100 ML 100 ML IV SCH (21:48)
[2019-09-18] MEDS: TAMSULOSIN HCL 0.4 MG CAP.ER.24H PO SCH (21:48)
[2019-09-19] VITALS (22 sets, daily range): BP systolic 98–145; BP diastolic 44–102
[2019-09-19] MEDS: ZOSYN 3.375GM+NS 50ML 50 ML IV SCH ×3 (04:30→20:58)
[2019-09-19 05:34] LABS: HEMATOCRIT 38.2 % (42-54); MEAN CORPUSCULAR HEMOGLOBIN 26.2 pg (27.0-33.0); MEAN CORPUSCULAR HGB CONC 31.9 g/dL (32.0-36.0); MEAN CORPUSCULAR VOLUME 82.2 fL (79-99); PLATELET COUNT (AUTO) 259 K/uL (130-400); RED BLOOD CELL COUNT(AUTO) 4.65 MIL/uL (4.50-6.20); RED CELL DISTRIBUTION WIDTH 16.3 % (11.0-15.5); WHITE BLOOD COUNT (AUTO) 6.3 K/uL (4.8-10.8)
[2019-09-19] MEDS: VANCOMYCIN 1.25 GM in SODIUM CHLORIDE 0.9% 250 ML IV SCH ×3 (06:00→21:00)
[2019-09-19 06:02] LABS: CREATININE 0.9 mg/dL (0.5-1.5)
[2019-09-19] MEDS: SODIUM CHLORIDE 0.9% 1000ML 1,000 ML IV SCH (12:26)
--- NOTE | 2019-09-19 13:30 | NUR ---
Received report from Megan in GI lab. Bronchoscopy performed with general anesthesia with lavage and biopsy. Breathing treatment ordered and administered in GI lab.
[2019-09-19] MEDS ORDERED: PROPOFOL 10 MG/ML 20ML VIAL IV ONE (15:05)
[2019-09-19] MEDS ORDERED: SUCCINYLCHOLINE 200MG/10ML SYR ONE (15:06)
[2019-09-19] MEDS: IPRATROPIUM/ALBUTEROL SULFATE 3 ML SOLUTION IH PRN (15:58)
[2019-09-19] MEDS: ISOSORBIDE MONO 30MG TAB SR PO SCH (19:11)
[2019-09-19] MEDS: FAMOTIDINE 20MG TAB 20 MG TAB PO SCH (19:11)
[2019-09-19] MEDS: AMLODIPINE BESYLATE 5 MG TAB PO SCH (19:11)
[2019-09-19] MEDS: TAMSULOSIN HCL 0.4 MG CAP.ER.24H PO SCH (20:59)
[2019-09-19] MEDS: SIMVASTATIN 20 MG TABLET PO SCH (20:59)
[2019-09-19] MEDS: DOXYCYCLINE HYCLATE 100 MG TABLET PO SCH (20:59)
[2019-09-20] VITALS (13 sets, daily range): BP systolic 90–156; BP diastolic 44–79
[2019-09-20] MEDS: ZOSYN 3.375GM+NS 50ML 50 ML IV SCH ×3 (03:45→21:58)
[2019-09-20] MEDS: SODIUM CHLORIDE 0.9% 1000ML 1,000 ML IV SCH ×2 (03:45→19:51)
[2019-09-20 05:02] LABS: HEMATOCRIT 34.2 % (42-54); MEAN CORPUSCULAR HEMOGLOBIN 26.1 pg (27.0-33.0); MEAN CORPUSCULAR HGB CONC 31.6 g/dL (32.0-36.0); MEAN CORPUSCULAR VOLUME 82.6 fL (79-99); PLATELET COUNT (AUTO) 244 K/uL (130-400); RED BLOOD CELL COUNT(AUTO) 4.14 MIL/uL (4.50-6.20); RED CELL DISTRIBUTION WIDTH 16.3 % (11.0-15.5); WHITE BLOOD COUNT (AUTO) 7.4 K/uL (4.8-10.8)
[2019-09-20 05:33] LABS: CREATININE 0.9 mg/dL (0.5-1.5); MAGNESIUM 2.1 mg/dL (1.80-2.40); PHOSPHORUS 3.3 mg/dL (2.5-4.9); POTASSIUM 3.6 mmol/L (3.5-5.1)
--- NOTE | 2019-09-20 05:56 | NUR ---
SLEPT Pt slept well,on 02 at 2lpm via NC.Voiced no complaints of pain or discomfort.
[2019-09-20] MEDS: POTASSIUM CHLORIDE 20 MEQ ERTAB PO PRN (06:19)
[2019-09-20] MEDS: VANCOMYCIN 1.25 GM in SODIUM CHLORIDE 0.9% 250 ML IV SCH ×2 (10:13→19:51)
[2019-09-20] MEDS: DOXYCYCLINE HYCLATE 100 MG TABLET PO SCH ×2 (10:14→19:50)
[2019-09-20] MEDS: ISOSORBIDE MONO 30MG TAB SR PO SCH (10:14)
[2019-09-20] MEDS: FAMOTIDINE 20MG TAB 20 MG TAB PO SCH (10:14)
[2019-09-20] MEDS: AMLODIPINE BESYLATE 5 MG TAB PO SCH (10:14)
[2019-09-20] MEDS ORDERED: SODIUM BICARB 50MEQ 50ML VIAL ONE (15:02)
[2019-09-20] MEDS ORDERED: IODIXANOL 320 MG/ML 100 ML VIAL ONE (15:02)
[2019-09-20] MEDS ORDERED: LIDOCAINE HCL 2% 20ML ONE (15:02)
--- NOTE | 2019-09-20 15:11 | NUR ---
RDSCREEN - LOS X 6, BMI 19.0 Pt admitted with persistent hemotysis, Hx of TB. Pt s/p Bronchoscopy. Regular diet order in place, PO at 100%, no report of GI distress. Pt with low BMI of 19.0, underweight for age. Recommend 60mL promod BID for nutritional support. RD to continue to monitor. Please notify as additional nutrition concerns arise. Thank you. Addendum: 09/20/19 at [address] Amended: Links added.
[2019-09-20] MEDS ORDERED: MIDAZOLAM HCL 1 MG/ML 2ML VIAL ONE (15:29)
[2019-09-20] MEDS: SIMVASTATIN 20 MG TABLET PO SCH (19:51)
[2019-09-20] MEDS: TAMSULOSIN HCL 0.4 MG CAP.ER.24H PO SCH (19:52)
--- NOTE | 2019-09-20 22:30 | NUR ---
ACTIVITY Bedrest completed,pt assisted in getting up,sitting on the side of the bed,eating full liquid diet.Rt groin dressing dry and intact.Soft to touch,no hematoma.Pedal pulses palpable.
[2019-09-21 03:00] VITALS: BP 106/48
[2019-09-21] MEDS: ZOSYN 3.375GM+NS 50ML 50 ML IV SCH ×3 (04:57→20:46)
[2019-09-21 08:00] VITALS: BP 123/55
--- NOTE | 2019-09-21 09:10 | NUR ---
pharmacy aware of vanco trough of 20.9 and ordered to continue current regimen
[2019-09-21] MEDS: AMLODIPINE BESYLATE 5 MG TAB PO SCH (09:29)
[2019-09-21] MEDS: ISOSORBIDE MONO 30MG TAB SR PO SCH (09:29)
[2019-09-21] MEDS: FAMOTIDINE 20MG TAB 20 MG TAB PO SCH (09:29)
[2019-09-21] MEDS: DOXYCYCLINE HYCLATE 100 MG TABLET PO SCH ×2 (09:29→20:48)
[2019-09-21] MEDS: VANCOMYCIN 1.25 GM in SODIUM CHLORIDE 0.9% 250 ML IV SCH ×2 (09:29→20:47)
[2019-09-21 12:01] VITALS: BP 133/59
[2019-09-21] MEDS: BENZONATATE 100 MG CAPSULE PO SCH ×2 (12:32→18:42)
[2019-09-21 17:08] VITALS: BP 132/78
[2019-09-21 19:00] VITALS: BP 143/58
[2019-09-21] MEDS: SODIUM CHLORIDE 0.9% 1000ML 1,000 ML IV SCH (20:47)
[2019-09-21] MEDS: SIMVASTATIN 20 MG TABLET PO SCH (20:47)
[2019-09-21] MEDS: TAMSULOSIN HCL 0.4 MG CAP.ER.24H PO SCH (20:48)
[2019-09-21] MEDS: IPRATROPIUM/ALBUTEROL SULFATE 3 ML SOLUTION IH PRN (21:07)
[2019-09-22] VITALS: BP 116/51
[2019-09-22] MEDS: IPRATROPIUM/ALBUTEROL SULFATE 3 ML SOLUTION IH PRN ×2 (00:58→14:22)
[2019-09-22] MEDS: BENZONATATE 100 MG CAPSULE PO SCH ×2 (03:08→11:18)
[2019-09-22 04:00] VITALS: BP 103/48
[2019-09-22] MEDS: SODIUM CHLORIDE 0.9% 1000ML 1,000 ML IV SCH (04:55)
[2019-09-22 05:33] LABS: MEAN CORPUSCULAR HEMOGLOBIN 26.9 pg (27.0-33.0); MEAN CORPUSCULAR HGB CONC 32.7 g/dL (32.0-36.0); MEAN CORPUSCULAR VOLUME 82.1 fL (79-99); PLATELET COUNT (AUTO) 254 K/uL (130-400); RED BLOOD CELL COUNT(AUTO) 4.02 MIL/uL (4.50-6.20); RED CELL DISTRIBUTION WIDTH 15.9 % (11.0-15.5); WHITE BLOOD COUNT (AUTO) 6.3 K/uL (4.8-10.8)
[2019-09-22 05:44] LABS: CREATININE 1.1 mg/dL (0.5-1.5); POTASSIUM 3.3 mmol/L (3.5-5.1)
[2019-09-22] MEDS: ZOSYN 3.375GM+NS 50ML 50 ML IV SCH ×2 (05:50→15:20)
[2019-09-22] MEDS: POTASSIUM CHLORIDE 20 MEQ ERTAB PO PRN ×3 (07:12→15:21)
[2019-09-22 08:20] VITALS: BP 130/73
[2019-09-22] MEDS: FAMOTIDINE 20MG TAB 20 MG TAB PO SCH (11:17)
[2019-09-22] MEDS: DOXYCYCLINE HYCLATE 100 MG TABLET PO SCH (11:17)
[2019-09-22] MEDS: ISOSORBIDE MONO 30MG TAB SR PO SCH (11:17)
[2019-09-22] MEDS: AMLODIPINE BESYLATE 5 MG TAB PO SCH (11:17)
[2019-09-22] MEDS: VANCOMYCIN 1.25 GM in SODIUM CHLORIDE 0.9% 250 ML IV SCH (11:17)
[2019-09-22 11:28] VITALS: BP 137/63
[2019-09-22] MEDS ORDERED: PHARMACY COMMUNICATION MISC SCH (12:45)
[2019-09-22] MEDS ORDERED: VANCOMYCIN 1.25 GM in SODIUM CHLORIDE 0.9% 250 ML IV SCH (12:45)
[2019-09-22 16:00] VITALS: BP 127/68
[2019-09-22] MEDS ORDERED: BUDESONIDE 0.25 MG/2 ML INH IH SCH (18:00)
== END 2019-09-22 17:30 | disposition home or self-care (01) | DRG 167 ==
LOC: EDH 17:03 → 3AH 17:47 → 2CH 21:28 → 3CH 09-18 00:42
PROVIDERS: ADMIT Internal Medicine; ATTEND Internal Medicine
PROC: 0BBG8ZX Excision of Left Upper Lung Lobe, Via Natural or Artificial Opening Endoscopic, Diagnostic (ICD-10-PCS; 2019-09-19)
PROC: 0B9G8ZX Drainage of Left Upper Lung Lobe, Via Natural or Artificial Opening Endoscopic, Diagnostic (ICD-10-PCS; 2019-09-19)
PROC: 0B9C8ZX Drainage of Right Upper Lung Lobe, Via Natural or Artificial Opening Endoscopic, Diagnostic (ICD-10-PCS; 2019-09-19)
PROC: 03LY3DZ Occlusion of Upper Artery with Intraluminal Device, Percutaneous Approach (ICD-10-PCS; principal; 2019-09-20)
PROC: B310YZZ Fluoroscopy of Thoracic Aorta using Other Contrast (ICD-10-PCS; 2019-09-20)
PROC: B44LZZZ Ultrasonography of Femoral Artery (ICD-10-PCS; 2019-09-20)
DX: J15.9 Unspecified bacterial pneumonia (principal); R04.2 Hemoptysis; J98.11 Atelectasis; J98.09 Other diseases of bronchus, not elsewhere classified; J84.10 Pulmonary fibrosis, unspecified; I10 Essential (primary) hypertension; E78.5 Hyperlipidemia, unspecified; N40.0 Benign prostatic hyperplasia without lower urinary tract symptoms; E11.9 Type 2 diabetes mellitus without complications; Z20.828 Contact with and (suspected) exposure to other viral communicable diseases; Z86.11 Personal history of tuberculosis
CPT/HCPCS: 31622; 31625; 31645; 36215; 36415; 37242; 71045; 71046; 71250; 75726; 80048; 80076; 80202; 81003; 83605; 83615; 83735; 83880; 84100; 84443; 85025; 85027; 85610; 85730; 87040; 87071; 87077; 87116; 87186; 87205; 87206; 87633; 87635; 88112; 88305; 88312; 88313; 94640; 99156; 99157; A4606; C1769; C1894; G0378; J0330; J1644; J1956; J2250; J2543; J2704; J3370; J3490; J7030; J7050; Q9967

== ENCOUNTER → 2019-09-14 | Outpatient (CLI) | payer MEDICARE ==
[~2019-09-14] MED LIST changes: -SODIUM CHLORIDE 0.9% 500ML 500 ML IV SCH
== END | disposition home or self-care (01) ==
LOC: OIH 15:03
PROVIDERS: ATTEND Internal Medicine
DX: R06.02 Shortness of breath (principal); J43.8 Other emphysema; Z86.11 Personal history of tuberculosis
CPT/HCPCS: 71046

== ENCOUNTER 2019-12-30 13:56 | Emergency (ER) | payer MEDICARE ==
[~2019-12-30 13:56] MED LIST changes: -AMLO-257 PO; +AMLO5TAB9 PO; -ISOS30TA6 PO
[2019-12-30 14:50] LABS: BASOPHILS % (AUTO) 0.1 % (0.0-5.0); HEMATOCRIT 42.5 % (42-54); LYMPHOCYTES % (AUTO) 11.5 % (21.0-51.0); MEAN CORPUSCULAR HEMOGLOBIN 27.5 pg (27.0-33.0); MEAN CORPUSCULAR HGB CONC 32.9 g/dL (32.0-36.0); MEAN CORPUSCULAR VOLUME 83.3 fL (79-99); MONOCYTES % (AUTO) 4.7 % (3.0-13.0); NEUTROPHILS % (AUTO) 81.3 % (40.0-77.0); PLATELET COUNT (AUTO) 261 K/uL (130-400); RED CELL DISTRIBUTION WIDTH 14.7 % (11.0-15.5); WHITE BLOOD COUNT (AUTO) 7.9 K/uL (4.8-10.8)
[2019-12-30 15:02] LABS: CREATININE 1.1 mg/dL (0.5-1.5); POTASSIUM 3.7 mmol/L (3.5-5.1)
[2019-12-30 15:03] LABS: APPEARANCE,URINE Clear (CLEAR); BILIRUBIN,URINE Negative (NEGATIVE); COLOR,URINE Yellow (YELLOW); GLUCOSE, URINE (UA) Negative (NEGATIVE); KETONES,URINE Negative (NEGATIVE); LEUKOCYTE ESTERASE ,URINE Trace (NEGATIVE); NITRATE,URINE Negative (NEGATIVE); OCCULT BLOOD,URINE Negative (NEGATIVE); PH,URINE 5.5 (5.0-8.0); PROTEIN,URINE Negative (NEGATIVE); UROBILINOGEN,URINE 0.2 mg/dL (0.2-1.0)
[2019-12-30 15:06] LABS: ALBUMIN 3.5 g/dL (3.5-5.0); BILIRUBIN,TOTAL 0.2 mg/dL (0.2-1.0); TOTAL PROTEIN, SERUM 7.6 g/dL (6.0-8.3)
[2019-12-30 15:26] LABS: BACTERIA,URINE Rare /HPF (None Seen); RBC,URINE None Seen /HPF (0-1); SQUAMOUS EPITHELIAL CELL,UR None Seen /HPF (0-2); WBC,URINE 0-1 /HPF (0-1)
[2019-12-30] MEDS ORDERED: CEFTRIAXONE SODIUM 1 GM ONE (16:44)
[2019-12-30] MEDS ORDERED: METHYLPREDNISOLONE SOD SUCC 40MG/ML 1ML ONE (16:44)
== END 2019-12-30 18:23 | disposition home or self-care (01) ==
LOC: EDH 13:56
DX: U07.1 COVID-19 (principal); R06.02 Shortness of breath; R05 Cough; R68.83 Chills (without fever); M79.10 Myalgia, unspecified site; E78.5 Hyperlipidemia, unspecified; I10 Essential (primary) hypertension
CPT/HCPCS: 36415; 71045; 80053; 81001; 82550; 84484 ×2; 85025; 85378; 87426; 93005 ×2; 96374; 96375; 99285; J0696; J2920

== ENCOUNTER 2020-01-26 15:24 | Inpatient (IN) | payer MEDICARE ==
[~2020-01-26] VITALS: Ht 162.6 cm; Wt 67.8 kg
[2020-01-26 16:23] LABS: BASOPHILS % (AUTO) 0.2 % (0.0-5.0); EOSINOPHILS % (AUTO) 1.9 % (0.0-8.0); HEMATOCRIT 39.5 % (42-54); LYMPHOCYTES % (AUTO) 16.2 % (21.0-51.0); MEAN CORPUSCULAR HEMOGLOBIN 27.8 pg (27.0-33.0); MEAN CORPUSCULAR HGB CONC 33.2 g/dL (32.0-36.0); MEAN CORPUSCULAR VOLUME 83.9 fL (79-99); MONOCYTES % (AUTO) 9.8 % (3.0-13.0); NEUTROPHILS % (AUTO) 70.3 % (40.0-77.0); PLATELET COUNT (AUTO) 223 K/uL (130-400); RED BLOOD CELL COUNT(AUTO) 4.71 MIL/uL (4.50-6.20); RED CELL DISTRIBUTION WIDTH 15.5 % (11.0-15.5); WHITE BLOOD COUNT (AUTO) 8.5 K/uL (4.8-10.8)
[2020-01-26 16:37] LABS: CREATININE 1.2 mg/dL (0.5-1.5); POTASSIUM 3.4 mmol/L (3.5-5.1)
[2020-01-26 16:42] LABS: ALBUMIN 2.8 g/dL (3.5-5.0); BILIRUBIN,TOTAL 0.2 mg/dL (0.2-1.0); TOTAL PROTEIN, SERUM 6.6 g/dL (6.0-8.3)
[2020-01-26] MEDS ORDERED: IPRATROPIUM/ALBUTEROL SULFATE 3 ML SOLUTION IH PRN (18:00)
[2020-01-26] MEDS ORDERED: HYDRALAZINE HCL 20 MG/ML VIAL IV PRN (18:15)
[2020-01-26] MEDS: AZITHROMYCIN 500MG+NS 250ML 250 ML IV SCH (18:15)
[2020-01-26] MEDS ORDERED: GUAIFENESIN-DM 200/20 MG 10 ML PO PRN (18:15)
[2020-01-26] MEDS ORDERED: NITROGLYCERIN 0.4 MG SL TAB SL PRN (18:15)
[2020-01-26] MEDS ORDERED: CEFTRIAXONE SODIUM 1 GM IV SCH (18:15)
[2020-01-26] MEDS ORDERED: ZOSYN 3.375GM+NS 50ML 50 ML IV ONE (18:37)
[2020-01-26] MEDS ORDERED: AZITHROMYCIN 500MG+NS 250ML 250 ML IV ONE (19:12)
[2020-01-26] MEDS ORDERED: HYDRALAZINE HCL 20 MG/ML VIAL ONE (19:56)
[2020-01-26] MEDS ORDERED: NITROGLYCERIN 0.4 MG SL TAB SL ONE (19:57)
[2020-01-26] MEDS ORDERED: POTASSIUM CHLORIDE 20MEQ/100ML 100 ML IV PRN (20:45)
[2020-01-26] MEDS ORDERED: LIDOCAINE HCL-MPF 1% 2ML VIAL IV PRN (20:45)
[2020-01-26] MEDS ORDERED: POTASSIUM CHLORIDE 10% ELIXIR 20 MEQ/15 ML UDCUP PO PRN (20:45)
[2020-01-26 21:10] VITALS: BP 123/67
[2020-01-26 21:16] LABS: INR 1.01 (0.85-1.15); PARTIAL THROMBOPLASTIN TIME 30.1 SEC (26.3-35.5); PROTHROMBIN TIME 10.9 SEC (9.6-11.6)
[2020-01-27] VITALS (7 sets, daily range): BP systolic 98–126; BP diastolic 48–63
[2020-01-27 04:34] LABS: BASOPHILS % (AUTO) 0.3 % (0.0-5.0); EOSINOPHILS % (AUTO) 2.7 % (0.0-8.0); HEMATOCRIT 35.2 % (42-54); LYMPHOCYTES % (AUTO) 16.7 % (21.0-51.0); MEAN CORPUSCULAR HEMOGLOBIN 26.9 pg (27.0-33.0); MEAN CORPUSCULAR HGB CONC 32.1 g/dL (32.0-36.0); MEAN CORPUSCULAR VOLUME 83.8 fL (79-99); MONOCYTES % (AUTO) 6.8 % (3.0-13.0); PLATELET COUNT (AUTO) 195 K/uL (130-400); RED CELL DISTRIBUTION WIDTH 15.7 % (11.0-15.5); WHITE BLOOD COUNT (AUTO) 7.5 K/uL (4.8-10.8)
[2020-01-27 04:54] LABS: ALBUMIN 2.3 g/dL (3.5-5.0); BILIRUBIN,TOTAL 0.4 mg/dL (0.2-1.0); CREATININE 0.9 mg/dL (0.5-1.5); POTASSIUM 3.6 mmol/L (3.5-5.1); TOTAL PROTEIN, SERUM 5.6 g/dL (6.0-8.3)
[2020-01-27] MEDS ORDERED: ENOXAPARIN SODIUM 40 MG/0.4 ML SYRINGE SQ SCH (09:00)
[2020-01-27] MEDS: ASCORBIC ACID 500 MG TAB PO SCH (09:21)
[2020-01-27] MEDS: PREDNISONE 20 MG TABLET PO SCH (09:21)
[2020-01-27] MEDS: ZINC SULFATE 220 CAPSULE PO SCH (09:21)
[2020-01-27] MEDS: LOSARTAN 50 MG TABLET PO SCH (09:21)
[2020-01-27] MEDS: AMLODIPINE BESYLATE 5 MG TAB PO SCH (09:21)
[2020-01-27] MEDS: ASPIRIN 81MG TAB.CHEW PO SCH (09:22)
[2020-01-27] MEDS: TAMSULOSIN HCL 0.4 MG CAP.ER.24H PO SCH (09:22)
[2020-01-27] MEDS: POTASSIUM CHLORIDE 20 MEQ ERTAB PO PRN ×2 (09:22→18:03)
--- NOTE | 2020-01-27 14:19 | NUR ---
DCP CM unable to speak to pt, called daughter on facesheet, spoke to Kathy Ervin [phone], discussed dc plans. Pt is independent prior to admission, lives at home with spouse, daughter lives close by. Pt has shower chair, provider 14hrs/wk, nebulizer machine, cpt vest, goes to adult day care prior to covid19. Daughter unable to recall name of place, [place]. Feels safe to go back home, spouse and daughter able to assist with transportation and needs as necessary. DC plan to home once stable. CM to cont to follow up. Addendum: 01/27/20 at 1428 by GERALDINE PARHAM LVN CM Amended: Links added.
[2020-01-27] MEDS: LACTULOSE 20 GM/30 ML UDCUP PO PRN (15:18)
[2020-01-27] MEDS ORDERED: ALBUTEROL INHALER 90MCG/INH IH PRN (16:30)
[2020-01-27] MEDS: GUAIFENESIN-CODEINE 5 ML SYRUP PO SCH ×2 (17:07→20:41)
[2020-01-27] MEDS: AZITHROMYCIN 500MG+NS 250ML 250 ML IV SCH (18:09)
[2020-01-27] MEDS: ZOSYN 3.375GM+NS 50ML 50 ML IV SCH (21:12)
[2020-01-28] MEDS: GUAIFENESIN-CODEINE 5 ML SYRUP PO SCH ×7 (01:07→23:53)
[2020-01-28 03:42] VITALS: BP 119/54
[2020-01-28] MEDS: LACTULOSE 20 GM/30 ML UDCUP PO PRN (04:40)
[2020-01-28] MEDS: ZOSYN 3.375GM+NS 50ML 50 ML IV SCH ×3 (04:51→20:04)
[2020-01-28] MEDS: BUDESONIDE 0.25 MG/2 ML INH IH SCH ×2 (06:00→18:00)
[2020-01-28 07:34] LABS: ALBUMIN 2.6 g/dL (3.5-5.0); BILIRUBIN,TOTAL 0.3 mg/dL (0.2-1.0); CREATININE 0.8 mg/dL (0.5-1.5); POTASSIUM 3.8 mmol/L (3.5-5.1); TOTAL PROTEIN, SERUM 6.3 g/dL (6.0-8.3)
[2020-01-28 08:00] VITALS: BP 133/68
[2020-01-28 08:41] LABS: BASOPHILS % (AUTO) 0.2 % (0.0-5.0); HEMATOCRIT 39.1 % (42-54); LYMPHOCYTES % (AUTO) 8.4 % (21.0-51.0); MEAN CORPUSCULAR HEMOGLOBIN 28.1 pg (27.0-33.0); MEAN CORPUSCULAR HGB CONC 33.5 g/dL (32.0-36.0); MEAN CORPUSCULAR VOLUME 83.7 fL (79-99); MONOCYTES % (AUTO) 6.7 % (3.0-13.0); NEUTROPHILS % (AUTO) 82.8 % (40.0-77.0); PLATELET COUNT (AUTO) 235 K/uL (130-400); RED BLOOD CELL COUNT(AUTO) 4.67 MIL/uL (4.50-6.20); RED CELL DISTRIBUTION WIDTH 15.7 % (11.0-15.5); WHITE BLOOD COUNT (AUTO) 10.2 K/uL (4.8-10.8)
[2020-01-28] MEDS ORDERED: IOHEXOL 350 MG/ML 100ML INFUS..BTL IV ONE (09:58)
[2020-01-28] MEDS: ZINC SULFATE 220 CAPSULE PO SCH (10:30)
[2020-01-28] MEDS: ASPIRIN 81MG TAB.CHEW PO SCH (10:30)
[2020-01-28] MEDS: AMLODIPINE BESYLATE 5 MG TAB PO SCH (10:30)
[2020-01-28] MEDS: LOSARTAN 50 MG TABLET PO SCH (10:30)
[2020-01-28] MEDS: PREDNISONE 20 MG TABLET PO SCH (10:30)
[2020-01-28] MEDS: ASCORBIC ACID 500 MG TAB PO SCH (10:30)
[2020-01-28] MEDS: TAMSULOSIN HCL 0.4 MG CAP.ER.24H PO SCH (10:30)
[2020-01-28 11:17] VITALS: BP 129/76
[2020-01-28] MEDS ORDERED: IOHEXOL-350 50ML VIAL IV ONE (11:17)
[2020-01-28 11:18] VITALS: BP 130/76
[2020-01-28] MEDS: BISACODYL 5 MG TABLET.DR PO SCH ×2 (11:30→20:04)
[2020-01-28] MEDS ORDERED: BISACODYL 5 MG TABLET.DR PO ONE (11:40)
[2020-01-28] MEDS ORDERED: MAGNESIUM CITRATE 296 ML SOLUTION PO ONE (13:00)
[2020-01-28] MEDS ORDERED: MAGNESIUM CITRATE 296 ML SOLUTION ONE (14:27)
[2020-01-28 16:00] VITALS: BP 122/61
[2020-01-28] MEDS: AZITHROMYCIN 500MG+NS 250ML 250 ML IV SCH (17:13)
[2020-01-28] MEDS: METRONIDAZOLE 500 MG TABLET PO SCH (19:51)
[2020-01-28 20:00] VITALS: BP 145/97
[2020-01-29] VITALS: BP 120/69
[2020-01-29 04:00] VITALS: BP 135/62
[2020-01-29] MEDS: METRONIDAZOLE 500 MG TABLET PO SCH ×3 (04:15→20:16)
[2020-01-29] MEDS: GUAIFENESIN-CODEINE 5 ML SYRUP PO SCH ×5 (05:12→20:30)
[2020-01-29] MEDS: ZOSYN 3.375GM+NS 50ML 50 ML IV SCH ×3 (05:40→21:11)
[2020-01-29 06:17] LABS: HEMATOCRIT 36.6 % (42-54); MEAN CORPUSCULAR HGB CONC 32.8 g/dL (32.0-36.0); MEAN CORPUSCULAR VOLUME 82.4 fL (79-99); RED BLOOD CELL COUNT(AUTO) 4.44 MIL/uL (4.50-6.20); RED CELL DISTRIBUTION WIDTH 15.5 % (11.0-15.5); WHITE BLOOD COUNT (AUTO) 9.2 K/uL (4.8-10.8)
[2020-01-29 06:39] LABS: ALBUMIN 2.3 g/dL (3.5-5.0); BILIRUBIN,TOTAL 0.4 mg/dL (0.2-1.0); CREATININE 0.8 mg/dL (0.5-1.5); MAGNESIUM 2.6 mg/dL (1.80-2.40); POTASSIUM 4.2 mmol/L (3.5-5.1)
[2020-01-29 06:46] LABS: CRP QUANTITATIVE 191.5 mg/L (0.00-9.0)
[2020-01-29] MEDS: BUDESONIDE 0.25 MG/2 ML INH IH SCH ×2 (07:00→15:54)
--- NOTE | 2020-01-29 07:30 | NUR ---
PATIENT REPORTS FEELING HIS HEART RATE FAST AND SHORTNESS OF BREATH. BP 131/66 , PULSE 135, TEMP 98.3 PATIENT ALSO REPORTS CHILLS AND ABDOMINAL PAIN. NEW ORDERS OBTAINED FROM KRIS GARCIA NP STAT EKG, LABETALOL 10MG IV PUSH X 1 DOSE, CT ABDOMEN WHEN STABLE
[2020-01-29] MEDS ORDERED: LABETALOL HCL 5 MG/ML 20ML VIAL IV SCH (07:45)
[2020-01-29] MEDS ORDERED: LABETALOL 20 MG/4 ML DISP.SYRIN IV ONE (07:50)
[2020-01-29 08:00] VITALS: BP 131/66
[2020-01-29] MEDS: LOSARTAN 50 MG TABLET PO SCH (09:00)
[2020-01-29] MEDS: PREDNISONE 20 MG TABLET PO SCH (09:00)
[2020-01-29] MEDS: AMLODIPINE BESYLATE 5 MG TAB PO SCH (09:00)
[2020-01-29] MEDS: BISACODYL 5 MG TABLET.DR PO SCH ×2 (09:00→21:00)
[2020-01-29] MEDS: TAMSULOSIN HCL 0.4 MG CAP.ER.24H PO SCH (09:00)
[2020-01-29] MEDS: ASCORBIC ACID 500 MG TAB PO SCH (09:00)
[2020-01-29] MEDS: ZINC SULFATE 220 CAPSULE PO SCH (09:00)
[2020-01-29] MEDS: ASPIRIN 81MG TAB.CHEW PO SCH (09:00)
[2020-01-29 11:09] VITALS: BP 119/64
--- NOTE | 2020-01-29 15:30 | NUR ---
NG TUBE PLACED AT BEDSIDE, CONFIRMED PLACEMENT X 2 NURSES, PENDING XRAY CONFIRMATION. PATIENT TOLERATED WELL
[2020-01-29 16:00] VITALS: BP 124/64
[2020-01-29] MEDS: AZITHROMYCIN 500MG+NS 250ML 250 ML IV SCH (18:17)
[2020-01-29 19:55] VITALS: BP 115/54
[2020-01-29] MEDS: METRONIDAZOLE 500MG/100ML BAG 100 ML IV SCH (21:48)
[2020-01-29] MEDS ORDERED: BISACODYL 10 MG SUPP.RECT RC PRN (23:15)
[2020-01-30] VITALS (7 sets, daily range): BP systolic 102–136; BP diastolic 48–62
[2020-01-30] MEDS: GUAIFENESIN-CODEINE 5 ML SYRUP PO SCH ×6 (00:30→20:34)
[2020-01-30] MEDS: ZOSYN 3.375GM+NS 50ML 50 ML IV SCH ×3 (05:01→20:34)
[2020-01-30] MEDS: METRONIDAZOLE 500MG/100ML BAG 100 ML IV SCH ×3 (05:02→21:15)
--- NOTE | 2020-01-30 05:31 | NUR ---
NGT remained in place but not draining. Patient abdomen mildly distended. No c/o nausea, and no pain. Po Flagyl changed to IV and administered as ordered. No acute distress this shift. Following POC.
[2020-01-30] MEDS: BUDESONIDE 0.25 MG/2 ML INH IH SCH ×2 (06:00→16:38)
[2020-01-30 07:08] LABS: BASOPHILS % (AUTO) 0.3 % (0.0-5.0); EOSINOPHILS % (AUTO) 2.5 % (0.0-8.0); HEMATOCRIT 36.2 % (42-54); MEAN CORPUSCULAR HEMOGLOBIN 26.8 pg (27.0-33.0); MEAN CORPUSCULAR VOLUME 83.6 fL (79-99); NEUTROPHILS % (AUTO) 73.2 % (40.0-77.0); PLATELET COUNT (AUTO) 210 K/uL (130-400); RED BLOOD CELL COUNT(AUTO) 4.33 MIL/uL (4.50-6.20)
[2020-01-30 07:22] LABS: ALBUMIN 2.2 g/dL (3.5-5.0); BILIRUBIN,TOTAL 0.5 mg/dL (0.2-1.0); MAGNESIUM 2.6 mg/dL (1.80-2.40); PHOSPHORUS 3.2 mg/dL (2.5-4.9); POTASSIUM 4.3 mmol/L (3.5-5.1); TOTAL PROTEIN, SERUM 5.8 g/dL (6.0-8.3)
[2020-01-30] MEDS: PREDNISONE 20 MG TABLET PO SCH (08:59)
[2020-01-30] MEDS: AMLODIPINE BESYLATE 5 MG TAB PO SCH (08:59)
[2020-01-30] MEDS: TAMSULOSIN HCL 0.4 MG CAP.ER.24H PO SCH (08:59)
[2020-01-30] MEDS: ASPIRIN 81MG TAB.CHEW PO SCH (09:00)
[2020-01-30] MEDS: ASCORBIC ACID 500 MG TAB PO SCH (09:00)
[2020-01-30] MEDS: ZINC SULFATE 220 CAPSULE PO SCH (09:00)
[2020-01-30] MEDS: LOSARTAN 50 MG TABLET PO SCH (09:00)
--- NOTE | 2020-01-30 17:12 | NUR ---
CLAMP NG TUBE CLAMPED NG TUBE AT APPROX 1630 HOURS. NG TUBE TO BE CLAMPED FOR 6 HOURS ENDING AT APPROX 2230 HOURS. IF PATIENT ABLE TO TOLERATE THEN ADVANCE DIET TO CLEAR LIQUID TOMORROW.
[2020-01-30] MEDS: AZITHROMYCIN 500MG+NS 250ML 250 ML IV SCH (17:55)
[2020-01-31] MEDS: GUAIFENESIN-CODEINE 5 ML SYRUP PO SCH ×6 (00:26→21:10)
[2020-01-31 04:20] VITALS: BP 98/48
[2020-01-31] MEDS: ZOSYN 3.375GM+NS 50ML 50 ML IV SCH ×3 (05:16→21:10)
[2020-01-31] MEDS: METRONIDAZOLE 500MG/100ML BAG 100 ML IV SCH ×3 (05:16→21:10)
[2020-01-31 07:30] VITALS: BP 107/45
[2020-01-31] MEDS: ASPIRIN 81MG TAB.CHEW PO SCH (09:00)
[2020-01-31] MEDS: TAMSULOSIN HCL 0.4 MG CAP.ER.24H PO SCH (09:00)
[2020-01-31] MEDS: ZINC SULFATE 220 CAPSULE PO SCH (09:00)
[2020-01-31] MEDS: AMLODIPINE BESYLATE 5 MG TAB PO SCH (09:00)
[2020-01-31] MEDS: LOSARTAN 50 MG TABLET PO SCH (09:00)
[2020-01-31] MEDS: PREDNISONE 20 MG TABLET PO SCH (09:00)
[2020-01-31] MEDS: ASCORBIC ACID 500 MG TAB PO SCH (09:00)
[2020-01-31 11:00] VITALS: BP 124/64
[2020-01-31 16:00] VITALS: BP 124/65
[2020-01-31] MEDS: BUDESONIDE 0.25 MG/2 ML INH IH SCH (18:00)
[2020-01-31] MEDS: AZITHROMYCIN 500MG+NS 250ML 250 ML IV SCH (18:07)
[2020-01-31 19:30] VITALS: BP 135/64
[2020-01-31 23:53] VITALS: BP 109/53
[2020-02-01] MEDS: GUAIFENESIN-CODEINE 5 ML SYRUP PO SCH ×6 (00:37→20:06)
[2020-02-01 04:00] VITALS: BP 134/72
[2020-02-01] MEDS: ZOSYN 3.375GM+NS 50ML 50 ML IV SCH ×3 (04:51→20:06)
[2020-02-01] MEDS: METRONIDAZOLE 500MG/100ML BAG 100 ML IV SCH ×3 (05:38→20:33)
[2020-02-01 08:46] VITALS: BP 131/66
[2020-02-01] MEDS: ASPIRIN 81MG TAB.CHEW PO SCH (09:04)
[2020-02-01] MEDS: TAMSULOSIN HCL 0.4 MG CAP.ER.24H PO SCH (09:05)
[2020-02-01] MEDS: LOSARTAN 50 MG TABLET PO SCH (09:05)
[2020-02-01] MEDS: ASCORBIC ACID 500 MG TAB PO SCH (09:05)
[2020-02-01] MEDS: PREDNISONE 20 MG TABLET PO SCH (09:06)
[2020-02-01] MEDS: AMLODIPINE BESYLATE 5 MG TAB PO SCH (09:06)
[2020-02-01] MEDS: ZINC SULFATE 220 CAPSULE PO SCH (09:44)
[2020-02-01] MEDS ORDERED: ONDANSETRON HCL 4 MG/2 ML VIAL IVP PRN (11:15)
[2020-02-01 11:20] VITALS: BP 127/69
[2020-02-01 15:22] LABS: BASOPHILS % (AUTO) 0.5 % (0.0-5.0); EOSINOPHILS % (AUTO) 0.1 % (0.0-8.0); HEMATOCRIT 42.2 % (42-54); MEAN CORPUSCULAR HEMOGLOBIN 26.8 pg (27.0-33.0); MEAN CORPUSCULAR HGB CONC 31.8 g/dL (32.0-36.0); MEAN CORPUSCULAR VOLUME 84.4 fL (79-99); MONOCYTES % (AUTO) 1.9 % (3.0-13.0); NEUTROPHILS % (AUTO) 88.7 % (40.0-77.0); PLATELET COUNT (AUTO) 313 K/uL (130-400); RED CELL DISTRIBUTION WIDTH 15.6 % (11.0-15.5); WHITE BLOOD COUNT (AUTO) 7.9 K/uL (4.8-10.8)
[2020-02-01 15:29] LABS: CREATININE 0.8 mg/dL (0.5-1.5); POTASSIUM 4.4 mmol/L (3.5-5.1)
[2020-02-01 15:31] LABS: INR 1.18 (0.85-1.15); PROTHROMBIN TIME 12.7 SEC (9.6-11.6)
[2020-02-01 16:08] VITALS: BP 110/63
[2020-02-01] MEDS ORDERED: PEG 3350/NA SULF,BICARB,CL/KCL 4000 ML SOLN PO SCH (17:00)
[2020-02-01] MEDS ORDERED: PHARMACY COMMUNICATION MISC SCH (17:45)
[2020-02-01] MEDS: AZITHROMYCIN 500MG+NS 250ML 250 ML IV SCH (18:01)
[2020-02-01 20:00] VITALS: BP 121/65
--- NOTE | 2020-02-01 20:10 | NUR ---
MEDS SHIFT ASSESSMENT DONE, PLEASE REFER TO CHART. PT CURRENTLY ON GI PREP FOR COLONOSCOPY IN AM. GOLYTELY TOLERATING WELL. PT CLAIMS HE HAD ALREADY HAD 4 BMS AND IS TARRY. DUE MEDS ADMINISTERED, TOLERATED WELL. WILL CONTINUE TO ADMINISTER GI PREP AND CLEAR LIQUIDS. WILL MONITOR CLOSELY. Addendum: 02/01/20 at 2113 by IRINA MONCADA RN RN Amended: Links added.
--- NOTE | 2020-02-01 23:15 | NUR ---
BM PT HAD ALREADY FINISHED THE GALLON OF [employer]. PT'S STOOLS ARE ALREADY CLEARING UP. EXPLAINED TO PT THAT CLEARING HIS BOWELS WHAT DESIRED MED EFFECT. PT VERBALIZES UNDERSTANDING. RE-ITERATED TO BE NPO POST MN. WILL CONTINUE TO MONITOR.
[2020-02-01 23:44] VITALS: BP 129/60
[2020-02-02] VITALS (19 sets, daily range): BP systolic 13–143; BP diastolic 53–74
[2020-02-02] MEDS: GUAIFENESIN-CODEINE 5 ML SYRUP PO SCH ×6 (00:06→21:22)
--- NOTE | 2020-02-02 01:10 | NUR ---
BM SALINE PIV. PT HAD AN ACCIDENT IN THE BED. NOTED BM TO BE ALREADY LIGHT YELLOW CLEAR WITH LITTLE SEDIMENTS. CHANGED SOILED GOWN AND LINEN. ENCOURAGED TO REST AND TRY TO SLEEP. WILL MONITOR PT.
[2020-02-02] MEDS: ZOSYN 3.375GM+NS 50ML 50 ML IV SCH ×3 (04:21→21:21)
[2020-02-02] MEDS: METRONIDAZOLE 500MG/100ML BAG 100 ML IV SCH ×3 (04:21→21:21)
--- NOTE | 2020-02-02 05:40 | NUR ---
SHOWER SALINE LOCKED PT TO SHOWER. PT VERBALIZES UNDERSTANDING OF PROCEDURE TO BE DONE. PCP INTERPRETING FOR MANAGER EMBALMER FUNERAL DIRECTOR AT THIS TIME. CONSENT FOR COLONOSCOPY SIGNED BY PT AND WITNESSED BY MANAGER EMBALMER FUNERAL DIRECTOR. PCP ASSISTING PT TO SHOWER. KEPT NPO. FOR MORE CARE.
[2020-02-02] MEDS ORDERED: PROPOFOL 10 MG/ML 20ML VIAL IV ONE (06:55)
[2020-02-02] MEDS ORDERED: LIDOCAINE HCL-MPF 2% 5ML VIAL ONE (06:55)
[2020-02-02] MEDS ORDERED: EPHEDRINE SULFATE 50 MG/ML AMPULE ONE (07:19)
[2020-02-02] MEDS: ASPIRIN 81MG TAB.CHEW PO SCH (09:50)
[2020-02-02] MEDS: PREDNISONE 20 MG TABLET PO SCH (09:51)
[2020-02-02] MEDS: LOSARTAN 50 MG TABLET PO SCH (09:51)
[2020-02-02] MEDS: ASCORBIC ACID 500 MG TAB PO SCH (09:52)
[2020-02-02] MEDS: AMLODIPINE BESYLATE 5 MG TAB PO SCH (09:52)
[2020-02-02] MEDS: TAMSULOSIN HCL 0.4 MG CAP.ER.24H PO SCH (09:52)
[2020-02-02] MEDS: ZINC SULFATE 220 CAPSULE PO SCH (09:52)
--- NOTE | 2020-02-02 12:14 | NUR ---
RDSCREEN - LOS X 7 Pt admitted with Hemoptysis, CAP. Diet advanced to Clear Liquid Diet order. Previous NPO x 4 days. Vit C, Zinc in place. Monitored labs: BG 152, Mg 2.60, Alb 2.2. Pt with Colitis, constipation, narrowed colon. Pending colonoscopy. Recommend continue Clear Liquid diet order Recommend Ensure Clear TID RD to continue to monitor. Please notify as additional nutrition concerns arise. Thank you.
[2020-02-02] MEDS: AZITHROMYCIN 500MG+NS 250ML 250 ML IV SCH (18:03)
[2020-02-03] MEDS: GUAIFENESIN-CODEINE 5 ML SYRUP PO SCH ×6 (00:30→20:38)
[2020-02-03 04:00] VITALS: BP 107/52
[2020-02-03] MEDS: ZOSYN 3.375GM+NS 50ML 50 ML IV SCH ×3 (05:00→21:45)
[2020-02-03 05:07] LABS: BASOPHILS % (AUTO) 0.5 % (0.0-5.0); EOSINOPHILS % (AUTO) 0.2 % (0.0-8.0); LYMPHOCYTES % (AUTO) 17.2 % (21.0-51.0); MEAN CORPUSCULAR HEMOGLOBIN 26.7 pg (27.0-33.0); MEAN CORPUSCULAR VOLUME 83.3 fL (79-99); MONOCYTES % (AUTO) 8.2 % (3.0-13.0); NEUTROPHILS % (AUTO) 69.2 % (40.0-77.0); PLATELET COUNT (AUTO) 299 K/uL (130-400); RED CELL DISTRIBUTION WIDTH 15.7 % (11.0-15.5); WHITE BLOOD COUNT (AUTO) 6.1 K/uL (4.8-10.8)
[2020-02-03 05:23] LABS: ALBUMIN 2.2 g/dL (3.5-5.0); BILIRUBIN,TOTAL 0.2 mg/dL (0.2-1.0); CREATININE 0.7 mg/dL (0.5-1.5); MAGNESIUM 2.1 mg/dL (1.80-2.40); PHOSPHORUS 2.9 mg/dL (2.5-4.9); POTASSIUM 3.7 mmol/L (3.5-5.1); TOTAL PROTEIN, SERUM 5.4 g/dL (6.0-8.3)
[2020-02-03] MEDS: METRONIDAZOLE 500MG/100ML BAG 100 ML IV SCH ×3 (06:04→20:38)
[2020-02-03 08:00] VITALS: BP 127/60
[2020-02-03] MEDS: AMLODIPINE BESYLATE 5 MG TAB PO SCH (08:26)
[2020-02-03] MEDS: ASCORBIC ACID 500 MG TAB PO SCH (08:26)
[2020-02-03] MEDS: LOSARTAN 50 MG TABLET PO SCH (08:26)
[2020-02-03] MEDS: ASPIRIN 81MG TAB.CHEW PO SCH (08:26)
[2020-02-03] MEDS: TAMSULOSIN HCL 0.4 MG CAP.ER.24H PO SCH (08:27)
[2020-02-03] MEDS: PREDNISONE 20 MG TABLET PO SCH (08:27)
[2020-02-03] MEDS: ZINC SULFATE 220 CAPSULE PO SCH (08:27)
[2020-02-03 12:00] VITALS: BP 144/73
[2020-02-03 16:00] VITALS: BP 123/87
[2020-02-03] MEDS: AZITHROMYCIN 500MG+NS 250ML 250 ML IV SCH (17:47)
[2020-02-03 20:00] VITALS: BP 121/64
[2020-02-04] VITALS: BP 110/58
[2020-02-04] MEDS: GUAIFENESIN-CODEINE 5 ML SYRUP PO SCH ×4 (00:30→12:54)
[2020-02-04 04:00] VITALS: BP 131/65
[2020-02-04] MEDS: METRONIDAZOLE 500MG/100ML BAG 100 ML IV SCH ×2 (05:27→14:08)
[2020-02-04] MEDS: ZOSYN 3.375GM+NS 50ML 50 ML IV SCH ×2 (05:27→12:54)
[2020-02-04 07:35] LABS: BASOPHILS % (AUTO) 0.8 % (0.0-5.0); EOSINOPHILS % (AUTO) 1.1 % (0.0-8.0); HEMATOCRIT 41.8 % (42-54); LYMPHOCYTES % (AUTO) 25.6 % (21.0-51.0); MEAN CORPUSCULAR HEMOGLOBIN 27.2 pg (27.0-33.0); MEAN CORPUSCULAR HGB CONC 32.1 g/dL (32.0-36.0); MONOCYTES % (AUTO) 9.4 % (3.0-13.0); NEUTROPHILS % (AUTO) 57.6 % (40.0-77.0); PLATELET COUNT (AUTO) 396 K/uL (130-400); RED BLOOD CELL COUNT(AUTO) 4.92 MIL/uL (4.50-6.20); RED CELL DISTRIBUTION WIDTH 15.9 % (11.0-15.5); WHITE BLOOD COUNT (AUTO) 7.3 K/uL (4.8-10.8)
[2020-02-04 08:00] VITALS: BP 125/56
[2020-02-04 08:11] LABS: POTASSIUM 3.6 mmol/L (3.5-5.1)
[2020-02-04] MEDS: ASPIRIN 81MG TAB.CHEW PO SCH (08:54)
[2020-02-04] MEDS: ASCORBIC ACID 500 MG TAB PO SCH (08:55)
[2020-02-04] MEDS: PREDNISONE 20 MG TABLET PO SCH (08:55)
[2020-02-04] MEDS: ZINC SULFATE 220 CAPSULE PO SCH (08:55)
[2020-02-04] MEDS: LOSARTAN 50 MG TABLET PO SCH (08:55)
[2020-02-04] MEDS: AMLODIPINE BESYLATE 5 MG TAB PO SCH (08:55)
[2020-02-04] MEDS: TAMSULOSIN HCL 0.4 MG CAP.ER.24H PO SCH (08:55)
[2020-02-04 12:00] VITALS: BP 126/63
[2020-02-04 16:00] VITALS: BP 148/72
[2020-02-04] MEDS ORDERED: GUAI5SYR PO (16:08)
[2020-02-04] MEDS ORDERED: LEVO500T2 PO (16:08)
[2020-02-04] MEDS ORDERED: METR500T PO (16:08)
--- NOTE | 2020-02-04 18:14 | NUR ---
Patient discharged and is in no distress, INT removed and he is off the floor at this time via wheel chair.
== END 2020-02-04 18:13 | disposition home or self-care (01) | DRG 177 ==
LOC: EDH 15:24 → EDHIP 18:06 → INTOOBSV 18:06 → OBSVTOIN 18:06 → 4BH 20:40
PROVIDERS: ADMIT Internal Medicine; ATTEND Internal Medicine
PROC: 0DBK8ZX Excision of Ascending Colon, Via Natural or Artificial Opening Endoscopic, Diagnostic (ICD-10-PCS; principal; 2020-02-02)
PROC: 0DBL8ZX Excision of Transverse Colon, Via Natural or Artificial Opening Endoscopic, Diagnostic (ICD-10-PCS; 2020-02-02)
DX: U07.1 COVID-19 (principal); J12.89 Other viral pneumonia; R04.2 Hemoptysis; I25.10 Atherosclerotic heart disease of native coronary artery without angina pectoris; I10 Essential (primary) hypertension; E78.5 Hyperlipidemia, unspecified; N40.0 Benign prostatic hyperplasia without lower urinary tract symptoms; E87.6 Hypokalemia; K52.9 Noninfective gastroenteritis and colitis, unspecified; K59.00 Constipation, unspecified; Z82.49 Family history of ischemic heart disease and other diseases of the circulatory system; K57.30 Diverticulosis of large intestine without perforation or abscess without bleeding; J84.10 Pulmonary fibrosis, unspecified; Z82.0 Family history of epilepsy and other diseases of the nervous system; Z82.3 Family history of stroke; Z83.3 Family history of diabetes mellitus; Z82.5 Family history of asthma and other chronic lower respiratory diseases; Z86.11 Personal history of tuberculosis; Z95.5 Presence of coronary angioplasty implant and graft
CPT/HCPCS: 36415; 45380; 71045; 71250; 71260; 74018; 74176; 80048; 80053; 82728; 82948; 83605; 83615; 83735; 83880; 84100; 84145; 84484; 85025; 85027; 85378; 85610; 85730; 86140; 87040; 87071; 87077; 87186; 87205; 87426; 88305; 88342; 93005; 94664; A4606; G0378; J0360; J0456; J1650; J2405; J2543; J2704; J3490; J7030; Q9967; U0003

== ENCOUNTER 2020-03-05 11:07 | Observation (INO) | payer MEDICARE ==
[~2020-03-05] VITALS: Ht 162.6 cm; Wt 63.6 kg
[~2020-03-05 11:07] MED LIST changes: +AMLO-257 PO; -AMLO5TAB9 PO; +GUAI5SYR PO; +LEVO500T2 PO; +METR500T PO
[2020-03-05] MEDS ORDERED: ASPIRIN 325 MG TABLET ONE (11:11)
[2020-03-05 11:20] LABS: BASOPHILS % (AUTO) 0.7 % (0.0-5.0); EOSINOPHILS % (AUTO) 2.6 % (0.0-8.0); HEMATOCRIT 39.9 % (42-54); LYMPHOCYTES % (AUTO) 20.4 % (21.0-51.0); MEAN CORPUSCULAR HEMOGLOBIN 27.5 pg (27.0-33.0); MEAN CORPUSCULAR HGB CONC 31.8 g/dL (32.0-36.0); MEAN CORPUSCULAR VOLUME 86.6 fL (79-99); MONOCYTES % (AUTO) 8.6 % (3.0-13.0); NEUTROPHILS % (AUTO) 67.1 % (40.0-77.0); PLATELET COUNT (AUTO) 262 K/uL (130-400); RED BLOOD CELL COUNT(AUTO) 4.61 MIL/uL (4.50-6.20); WHITE BLOOD COUNT (AUTO) 7.2 K/uL (4.8-10.8)
[2020-03-05 11:34] LABS: ALBUMIN 3.1 g/dL (3.5-5.0); BILIRUBIN,TOTAL 0.3 mg/dL (0.2-1.0); CREATININE 0.9 mg/dL (0.5-1.5); POTASSIUM 4.9 mmol/L (3.5-5.1); TOTAL PROTEIN, SERUM 7.3 g/dL (6.0-8.3)
[2020-03-05 12:32] LABS: INR 0.99 (0.85-1.15); PARTIAL THROMBOPLASTIN TIME 26.9 SEC (26.3-35.5); PROTHROMBIN TIME 10.7 SEC (9.6-11.6)
[2020-03-05 14:00] LABS: APPEARANCE,URINE CLEAR (CLEAR); BILIRUBIN,URINE NEGATIVE (NEGATIVE); COLOR,URINE YELLOW (YELLOW); GLUCOSE, URINE (UA) NEGATIVE (NEGATIVE); KETONES,URINE NEGATIVE (NEGATIVE); LEUKOCYTE ESTERASE ,URINE NEGATIVE (NEGATIVE); NITRATE,URINE NEGATIVE (NEGATIVE); OCCULT BLOOD,URINE TRACE-INTACT (NEGATIVE); PROTEIN,URINE NEGATIVE (NEGATIVE); UROBILINOGEN,URINE 0.2 mg/dL (0.2-1.0)
[2020-03-05 14:20] LABS: BACTERIA,URINE Rare /HPF (None Seen); MUCUS,URINE Moderate LPF (None Seen); RBC,URINE 0-1 /HPF (0-1); SQUAMOUS EPITHELIAL CELL,UR Rare /HPF (0-2); WBC,URINE 0-1 /HPF (0-1)
[2020-03-05] MEDS ORDERED: ACETAMINOPHEN 325 MG TAB PO PRN (17:15)
--- NOTE | 2020-03-05 17:35 | NUR ---
RECEIVED FROM ED VIA STRETCHER ACCOMPANIED BY Seble CAM RN. PT. DENIES ANY C/O SOB, DENIES ANY CURRENT PAIN. AAOX3. RESP.'S EVEN AND UNLABORED. CALL LIGHT WITHIN REACH, VERBALIZED ABILITY TO USE. BED LOW, SIDE RAILS UP X2.
[2020-03-05 18:00] VITALS: BP 133/58
[2020-03-05] MEDS ORDERED: IPRA0.2S54 IH (18:10)
[2020-03-05] MEDS ORDERED: IOHEXOL-350 75 ML VIAL IV ONE (18:29)
--- NOTE | 2020-03-05 18:48 | NUR ---
RECEIVED CALL FROM DR. Jimi CARRILLO. NOTIFIED OF CONSULT. NO NEW ORDERS RECEIVED AT THIS TIME.
[2020-03-05 19:29] VITALS: BP 132/61
[2020-03-05] MEDS ORDERED: CLOPIDOGREL BISULFATE 300 MG TAB PO SCH (20:15)
[2020-03-05] MEDS: METOPROLOL TARTRATE 25 MG TAB PO SCH (20:39)
[2020-03-05] MEDS: FAMOTIDINE 20MG TAB 20 MG TAB PO SCH (20:40)
[2020-03-05] MEDS ORDERED: ATORVASTATIN CALCIUM 20 MG TABLET PO SCH (21:00)
[2020-03-05 23:14] VITALS: BP 103/49
[2020-03-06 01:30] LABS: BASOPHILS % (AUTO) 0.8 % (0.0-5.0); EOSINOPHILS % (AUTO) 4.9 % (0.0-8.0); HEMATOCRIT 36.2 % (42-54); LYMPHOCYTES % (AUTO) 28.1 % (21.0-51.0); MEAN CORPUSCULAR HEMOGLOBIN 27.5 pg (27.0-33.0); MEAN CORPUSCULAR VOLUME 85.8 fL (79-99); NEUTROPHILS % (AUTO) 53.7 % (40.0-77.0); PLATELET COUNT (AUTO) 274 K/uL (130-400); RED BLOOD CELL COUNT(AUTO) 4.22 MIL/uL (4.50-6.20); RED CELL DISTRIBUTION WIDTH 15.8 % (11.0-15.5); WHITE BLOOD COUNT (AUTO) 6.3 K/uL (4.8-10.8)
[2020-03-06 01:51] LABS: BILIRUBIN,TOTAL 0.3 mg/dL (0.2-1.0); CREATININE 0.9 mg/dL (0.5-1.5); POTASSIUM 4.2 mmol/L (3.5-5.1)
[2020-03-06 01:52] LABS: ALBUMIN 2.7 g/dL (3.5-5.0); TOTAL PROTEIN, SERUM 6.2 g/dL (6.0-8.3)
[2020-03-06 03:15] VITALS: BP 105/48
[2020-03-06 03:20] VITALS: BP 98/67
[2020-03-06 07:00] VITALS: BP 93/45
[2020-03-06] MEDS ORDERED: ENOXAPARIN SODIUM 30 MG/0.3 ML SQ SCH (09:00)
[2020-03-06] MEDS: FAMOTIDINE 20MG TAB 20 MG TAB PO SCH (09:00)
[2020-03-06] MEDS: METOPROLOL TARTRATE 25 MG TAB PO SCH (09:00)
[2020-03-06] MEDS ORDERED: ASPIRIN 81MG TAB.CHEW PO SCH (09:00)
[2020-03-06 11:00] VITALS: BP 111/56
[2020-03-06] MEDS ORDERED: TELM40TA8 PO (11:38)
[2020-03-06] MEDS ORDERED: ISOS30TA6 PO (11:38)
[2020-03-06] MEDS ORDERED: ISOSORBIDE MONO 30MG TAB SR PO SCH (11:45)
[2020-03-06 15:00] VITALS: BP 98/49
--- NOTE | 2020-03-06 17:29 | NUR ---
DISCHARGE PATIENT GIVEN DISCHARGE INSTRUCTIONS AND EDUCATION ON FOLLOW UP APPOINTMENTS, NEW PRESCRIBED MEDICATIONS AND ADL. PATIENT VERBALIZED UNDERSTANDING OF ALL EDUCATION GIVEN VIA TEACH BACK. PATIENT LEFT VIA WHEELCHAIR. IV DISCONTINUED, CATHETER INTACT.,
== END 2020-03-06 17:20 | disposition home or self-care (01) ==
LOC: EDH 11:07 → EDHIP 15:30 → OBSVTOIN 15:30 → INTOOBSV 15:30 → 4CH 17:19
PROVIDERS: ADMIT Internal Medicine; ATTEND Internal Medicine
DX: U07.1 COVID-19 (principal); R07.89 Other chest pain; R79.1 Abnormal coagulation profile; J84.112 Idiopathic pulmonary fibrosis; I25.119 Atherosclerotic heart disease of native coronary artery with unspecified angina pectoris; I10 Essential (primary) hypertension; N40.0 Benign prostatic hyperplasia without lower urinary tract symptoms; E78.5 Hyperlipidemia, unspecified; J43.9 Emphysema, unspecified; Z87.19 Personal history of other diseases of the digestive system; Z86.11 Personal history of tuberculosis; Z95.5 Presence of coronary angioplasty implant and graft; Z79.82 Long term (current) use of aspirin; Z79.899 Other long term (current) drug therapy
CPT/HCPCS: 36415 ×2; 71045; 71275; 80053 ×2; 81001; 82550; 84484 ×4; 85025 ×2; 85378; 85610; 85730; 87426; 93005; 99285; G0378 ×10; Q9967; U0003

== ENCOUNTER 2020-03-20 05:55 | Day surgery (SDC) | payer MEDICARE ==
[~2020-03-20] VITALS: Ht 162.6 cm; Wt 64.4 kg
[~2020-03-20 05:55] MED LIST changes: -AMLO-257 PO; -ASPI-1443 PO; -GUAI5SYR PO; +IPRA0.2S54 IH; +ISOS30TA6 PO; -LEVO500T2 PO; -METR500T PO
[2020-03-20 06:44] VITALS: BP 147/70
[2020-03-20] MEDS: SODIUM CHLORIDE 0.9% 1000ML 1,000 ML IV ONE (06:52)
[2020-03-20] MEDS ORDERED: ALBU0.63 IH (06:55)
[2020-03-20] MEDS: IPRATROPIUM/ALBUTEROL SULFATE 3 ML SOLUTION IH ONE (07:17)
[2020-03-20] MEDS ORDERED: PROPOFOL 10 MG/ML 20ML VIAL IV ONE (08:07)
[2020-03-20] MEDS ORDERED: LIDOCAINE HCL 1% 20 ML VIAL ONE (08:07)
[2020-03-20] MEDS ORDERED: PHENYLEPHRINE HCL 10 MG/ML 1ML VIAL IV ONE (08:32)
[2020-03-20 08:40] VITALS: BP 101/43
[2020-03-20 08:45] VITALS: BP 108/45
[2020-03-20 08:55] VITALS: BP 105/44
[2020-03-20 09:00] VITALS: BP 111/50
== END 2020-03-20 09:28 | disposition home or self-care (01) ==
LOC: ENDO 05:55 → DAH 05:55 → ENDO 09:28
PROVIDERS: ATTEND Internal Medicine Gastroenterology
DX: R19.4 Change in bowel habit (principal); K63.5 Polyp of colon; K52.9 Noninfective gastroenteritis and colitis, unspecified; K57.30 Diverticulosis of large intestine without perforation or abscess without bleeding; K55.059 Acute (reversible) ischemia of intestine, part and extent unspecified; K56.699 Other intestinal obstruction unspecified as to partial versus complete obstruction; I10 Essential (primary) hypertension; I25.10 Atherosclerotic heart disease of native coronary artery without angina pectoris; J44.9 Chronic obstructive pulmonary disease, unspecified; F32.9 Major depressive disorder, single episode, unspecified; E78.5 Hyperlipidemia, unspecified; Z95.5 Presence of coronary angioplasty implant and graft; K21.9 Gastro-esophageal reflux disease without esophagitis; Z79.899 Other long term (current) drug therapy
CPT/HCPCS: 36415; 45380; 45385; 94640; C9803; J2370; J2704; J7030; U0003

== ENCOUNTER 2020-06-14 07:49 | Day surgery (SDC) | payer MEDICARE ==
[2020-06-06 11:11] LABS: BASOPHILS % (AUTO) 1.2 % (0.0-5.0); EOSINOPHILS % (AUTO) 1.8 % (0.0-8.0); HEMATOCRIT 40.4 % (42-54); LYMPHOCYTES % (AUTO) 17.2 % (21.0-51.0); MEAN CORPUSCULAR HGB CONC 31.4 g/dL (32.0-36.0); MEAN CORPUSCULAR VOLUME 79.4 fL (79-99); MONOCYTES % (AUTO) 9.7 % (3.0-13.0); NEUTROPHILS % (AUTO) 68.3 % (40.0-77.0); PLATELET COUNT (AUTO) 308 K/uL (130-400); RED BLOOD CELL COUNT(AUTO) 5.09 MIL/uL (4.50-6.20)
[2020-06-06 11:16] LABS: CREATININE 0.9 mg/dL (0.5-1.5); POTASSIUM 3.6 mmol/L (3.5-5.1)
[2020-06-06 11:23] LABS: APPEARANCE,URINE Clear (CLEAR); BILIRUBIN,URINE Negative (NEGATIVE); COLOR,URINE Yellow (YELLOW); GLUCOSE, URINE (UA) Negative (NEGATIVE); KETONES,URINE Negative (NEGATIVE); LEUKOCYTE ESTERASE ,URINE Trace (NEGATIVE); NITRATE,URINE Negative (NEGATIVE); OCCULT BLOOD,URINE Negative (NEGATIVE); PH,URINE 5.5 (5.0-8.0); PROTEIN,URINE Negative (NEGATIVE); UROBILINOGEN,URINE 0.2 mg/dL (0.2-1.0)
[2020-06-06 11:24] LABS: INR 1.08 (0.85-1.15); PROTHROMBIN TIME 11.5 SEC (9.6-11.6)
[2020-06-06 11:26] LABS: PARTIAL THROMBOPLASTIN TIME 28.9 SEC (26.3-35.5)
[2020-06-06 11:38] LABS: BACTERIA,URINE Rare /HPF (None Seen); RBC,URINE 0-1 /HPF (0-1); SQUAMOUS EPITHELIAL CELL,UR Rare /HPF (0-2); WBC,URINE 0-1 /HPF (0-1)
[2020-06-13 13:28] VITALS: BP 141/67
[~2020-06-14] VITALS: Ht 165.1 cm; Wt 66.1 kg
[2020-06-14] VITALS (19 sets, daily range): BP systolic 141–159; BP diastolic 69–80
[~2020-06-14 07:49] MED LIST changes: +AEC81 PO; -CYCL30DR OU; +GENTAMICIN SULFATE IV SCH; -IPRA0.2S54 IH; +IPRNEB IH; +LEVO500T89 PO; -NITR0.4T50 SL; +OMEP40CA13 PO; +PHARMACY COMMUNICATION MISC SCH; +SODIUM CHLORIDE 0.9% IV SCH
[2020-06-14] MEDS ORDERED: LACTATED RINGERS 1000ML 1,000 ML IV ONE (07:57)
[2020-06-14] MEDS ORDERED: CEFTRIAXONE SODIUM 1 GM IVP ONE (08:00)
[2020-06-14] MEDS ORDERED: PHARMACY COMMUNICATION MISC ONE (08:00)
[2020-06-14] MEDS ORDERED: ROCURONIUM 10MG/1ML SYR 10 MG/ML ML ONE (09:29)
[2020-06-14] MEDS ORDERED: SUCCINYLCHOLINE 200MG/10ML SYR ONE (09:29)
[2020-06-14] MEDS ORDERED: LIDOCAINE PF 2% 5ML ABBOJECT ONE (09:29)
[2020-06-14] MEDS ORDERED: PROPOFOL 10 MG/ML 20ML VIAL IV ONE ×2 (09:29→11:50)
[2020-06-14] MEDS ORDERED: FENTANYL CITRATE PF 50 MCG/1 ML 2ML VIAL ONE (09:29)
[2020-06-14] MEDS ORDERED: PHENYLEPHRINE HCL 10 MG/ML 1ML VIAL IV ONE (10:11)
[2020-06-14] MEDS ORDERED: SODIUM CHLORIDE 0.9% 10 ML VIAL ONE (10:11)
== END 2020-06-14 14:40 ==
LOC: DAH 07:49
PROVIDERS: ATTEND Urology
DX: N40.1 Benign prostatic hyperplasia with lower urinary tract symptoms (principal); Z20.828 Contact with and (suspected) exposure to other viral communicable diseases; N21.0 Calculus in bladder; R35.1 Nocturia; J45.909 Unspecified asthma, uncomplicated; E78.5 Hyperlipidemia, unspecified; I10 Essential (primary) hypertension; K21.9 Gastro-esophageal reflux disease without esophagitis; Z79.01 Long term (current) use of anticoagulants; Z95.5 Presence of coronary angioplasty implant and graft; Z98.890 Other specified postprocedural states; Z98.42 Cataract extraction status, left eye; Z98.41 Cataract extraction status, right eye; Z79.82 Long term (current) use of aspirin
CPT/HCPCS: 36415 ×2; 52318; 52648; 80048; 81001; 82360; 85025; 85610; 85730; 87088; 93005; A4215; A4221; A4222; A4223; A4354; A4358; A4600; A4663; C1758; C9803; J0330; J0696; J1580; J2001; J2370; J2704 ×2; J3010; J7120 ×2; U0003; 71045

== ENCOUNTER 2020-08-29 20:01 | Emergency (ER) | payer MEDICARE ==
[~2020-08-29 20:01] MED LIST changes: -GENTAMICIN SULFATE IV SCH; -ISOS30TA6 PO; +ISOS30TA92 PO; -PHARMACY COMMUNICATION MISC SCH; -SODIUM CHLORIDE 0.9% IV SCH
[2020-08-29 20:56] LABS: BASOPHILS % (AUTO) 0.3 % (0.0-5.0); HEMATOCRIT 39.2 % (42-54); LYMPHOCYTES % (AUTO) 10.4 % (21.0-51.0); MEAN CORPUSCULAR HEMOGLOBIN 23.5 pg (27.0-33.0); MEAN CORPUSCULAR HGB CONC 30.6 g/dL (32.0-36.0); MEAN CORPUSCULAR VOLUME 76.9 fL (79-99); MONOCYTES % (AUTO) 3.9 % (3.0-13.0); NEUTROPHILS % (AUTO) 85.1 % (40.0-77.0); PLATELET COUNT (AUTO) 318 K/uL (130-400); RED CELL DISTRIBUTION WIDTH 20.5 % (11.0-15.5); WHITE BLOOD COUNT (AUTO) 7.7 K/uL (4.8-10.8)
[2020-08-29] MEDS ORDERED: IPRATROPIUM/ALBUTEROL SULFATE 3 ML SOLUTION IH ONE (20:58)
[2020-08-29 21:09] LABS: INR 1.1 (0.85-1.15); PROTHROMBIN TIME 11.9 SEC (9.6-11.6)
[2020-08-29 21:11] LABS: CREATININE 1.1 mg/dL (0.5-1.5); PARTIAL THROMBOPLASTIN TIME 26.7 SEC (26.3-35.5); POTASSIUM 4.2 mmol/L (3.5-5.1)
[2020-08-29 21:16] LABS: ALBUMIN 3.5 g/dL (3.5-5.0); BILIRUBIN,TOTAL 0.2 mg/dL (0.2-1.0); TOTAL PROTEIN, SERUM 7.4 g/dL (6.0-8.3)
[2020-08-29 21:59] LABS: APPEARANCE,URINE Clear (CLEAR); BILIRUBIN,URINE Negative (NEGATIVE); COLOR,URINE Yellow (YELLOW); GLUCOSE, URINE (UA) Negative (NEGATIVE); KETONES,URINE Negative (NEGATIVE); LEUKOCYTE ESTERASE ,URINE Moderate (NEGATIVE); NITRATE,URINE Negative (NEGATIVE); OCCULT BLOOD,URINE Negative (NEGATIVE); PH,URINE 5.5 (5.0-8.0); PROTEIN,URINE Negative (NEGATIVE); UROBILINOGEN,URINE 0.2 mg/dL (0.2-1.0)
[2020-08-29 22:05] LABS: RBC,URINE 0-1 /HPF (0-1)
[2020-08-29 22:06] LABS: BACTERIA,URINE Rare /HPF (None Seen); SQUAMOUS EPITHELIAL CELL,UR Rare /HPF (0-2)
== END 2020-08-29 22:04 | disposition home or self-care (01) ==
LOC: EDH 20:01
DX: J45.909 Unspecified asthma, uncomplicated (principal); I10 Essential (primary) hypertension; E78.5 Hyperlipidemia, unspecified
CPT/HCPCS: 36415; 71045; 80053; 81001; 82550; 83605; 84145; 84484; 85025; 85610; 85730; 87040; 87088; 93005; 94640

== ENCOUNTER → 2020-09-10 | Outpatient (CLI) | payer MEDICARE ==
[2020-09-10 15:29] LABS: BASOPHILS % (AUTO) 0.6 % (0.0-5.0); EOSINOPHILS % (AUTO) 1.5 % (0.0-8.0); HEMATOCRIT 39.9 % (42-54); LYMPHOCYTES % (AUTO) 15.1 % (21.0-51.0); MEAN CORPUSCULAR HEMOGLOBIN 24.4 pg (27.0-33.0); MEAN CORPUSCULAR HGB CONC 31.6 g/dL (32.0-36.0); MEAN CORPUSCULAR VOLUME 77.3 fL (79-99); MONOCYTES % (AUTO) 6.8 % (3.0-13.0); NEUTROPHILS % (AUTO) 75.6 % (40.0-77.0); PLATELET COUNT (AUTO) 325 K/uL (130-400); RED BLOOD CELL COUNT(AUTO) 5.16 MIL/uL (4.50-6.20); RED CELL DISTRIBUTION WIDTH 21.1 % (11.0-15.5); WHITE BLOOD COUNT (AUTO) 10.3 K/uL (4.8-10.8)
[2020-09-10 15:45] LABS: ALBUMIN 3.5 g/dL (3.5-5.0); BILIRUBIN,TOTAL 0.3 mg/dL (0.2-1.0); CREATININE 0.9 mg/dL (0.5-1.5); POTASSIUM 4.3 mmol/L (3.5-5.1); TOTAL PROTEIN, SERUM 7.6 g/dL (6.0-8.3)
== END | disposition home or self-care (01) ==
LOC: LAB 14:55
PROVIDERS: ATTEND Internal Medicine Gastroenterology
DX: R10.32 Left lower quadrant pain (principal)
CPT/HCPCS: 36415; 80053; 85025

== ENCOUNTER → 2020-09-11 | Outpatient (CLI) | payer MEDICARE ==
[~2020-09-11] MED LIST changes: +IOHEXOL-350 75 ML VIAL IV ONE
== END | disposition home or self-care (01) ==
LOC: RAH 08:23
PROVIDERS: ATTEND Internal Medicine Gastroenterology
DX: N28.1 Cyst of kidney, acquired (principal); K76.89 Other specified diseases of liver; K57.90 Diverticulosis of intestine, part unspecified, without perforation or abscess without bleeding
CPT/HCPCS: 74178; Q9967

== ENCOUNTER 2020-11-06 17:17 | Emergency (ER) | payer MEDICARE ==
[~2020-11-06] VITALS: Ht 152.4 cm; Wt 63.5 kg
[~2020-11-06 17:17] MED LIST changes: -AEC81 PO; +DOXY100C2 PO; -IOHEXOL-350 75 ML VIAL IV ONE; -LEVO500T89 PO
[2020-11-06] MEDS ORDERED: ACETAMINOPHEN-CODEINE 300/30MG TAB PO ONE (18:15)
[2020-11-06] MEDS ORDERED: CEFTRIAXONE SODIUM 1 GM IV SCH (18:15)
[2020-11-06] MEDS ORDERED: IPRATROPIUM/ALBUTEROL SULFATE 3 ML SOLUTION IH SCH (18:15)
[2020-11-06] MEDS ORDERED: DEXAMETHASONE 10MG/ML 1ML VIAL 0 MG in SODIUM CHLORIDE 0.9% 50 ML IV SCH (18:15)
[2020-11-06 18:37] VITALS: BP 145/85
[2020-11-06 18:44] LABS: BASOPHILS % (AUTO) 0.4 % (0.0-5.0); EOSINOPHILS % (AUTO) 1.1 % (0.0-8.0); HEMATOCRIT 38.3 % (42-54); LYMPHOCYTES % (AUTO) 12.5 % (21.0-51.0); MEAN CORPUSCULAR HEMOGLOBIN 24.9 pg (27.0-33.0); MEAN CORPUSCULAR HGB CONC 31.9 g/dL (32.0-36.0); MEAN CORPUSCULAR VOLUME 78.3 fL (79-99); MONOCYTES % (AUTO) 9.2 % (3.0-13.0); NEUTROPHILS % (AUTO) 75.7 % (40.0-77.0); PLATELET COUNT (AUTO) 362 K/uL (130-400); RED BLOOD CELL COUNT(AUTO) 4.89 MIL/uL (4.50-6.20); RED CELL DISTRIBUTION WIDTH 17.1 % (11.0-15.5)
[2020-11-06] MEDS ORDERED: PHARMACY COMMUNICATION MISC SCH (18:45)
[2020-11-06] MEDS ORDERED: DEXAMETHASONE SOD PHOSPHATE 10MG/ML 1ML VIAL IV SCH (18:45)
[2020-11-06 18:51] LABS: POTASSIUM 3.8 mmol/L (3.5-5.1)
[2020-11-06 18:55] LABS: ALBUMIN 2.8 g/dL (3.5-5.0); BILIRUBIN,TOTAL 0.2 mg/dL (0.2-1.0); CRP QUANTITATIVE 88.1 mg/L (0.00-9.0); TOTAL PROTEIN, SERUM 7.1 g/dL (6.0-8.3)
[2020-11-06] MEDS ORDERED: CODE10LI PO (21:01)
[2020-11-06] MEDS ORDERED: BENZ-17 PO (21:06)
[2020-11-06 22:06] VITALS: BP 142/64
== END 2020-11-06 22:08 | disposition home or self-care (01) ==
LOC: EDH 17:17
DX: J44.1 Chronic obstructive pulmonary disease with (acute) exacerbation (principal); I10 Essential (primary) hypertension; I25.10 Atherosclerotic heart disease of native coronary artery without angina pectoris; E78.5 Hyperlipidemia, unspecified
CPT/HCPCS: 36415; 71045; 80053; 85025; 86140; 87804 ×2; 94640; 96365; 96375; 99284; J0696; J1100